=== PATIENT | male | born 1950 | race American Indian/Alaskan Native ===

== ENCOUNTER 2017-06-11 07:37 | Day surgery (SDC) | payer MEDICARE ==
[~2017-06-11 07:37] MED LIST: ANCEF/STERILE WATER 2 GM/20 ML 2 GM/20 ML SYRINGE IV NR; NACL 0.9% 1000 ML 1,000 ML IV SCH
[2017-06-11 08:43] LABS: Basophils % (Auto) 0.6 % (0.0-1.8); Eosinophils # (Auto) 0.1 K/mm3 (0.0-0.4); Hemoglobin 12.8 gm/dl (11.8-15.2); Lymphocytes # (Auto) 1.3 K/mm3 (1.2-5.4); Lymphocytes % (Auto) 29.4 % (13.4-35.0); Mean Corpuscular HGB Conc 34 % (32-34); Mean Corpuscular Hemoglobin 30 pg (28-32); Mean Corpuscular Volume 89 fl (84-94); Monocytes # (Auto) 0.4 K/mm3 (0.0-0.8); Monocytes % (Auto) 9.3 % (0.0-7.3); Platelet Count 194 K/mm3 (140-440); Red Blood Count 4.28 M/mm3 (3.65-5.03); Red Cell Distribution Width 15.3 % (13.2-15.2)
[2017-06-11 08:58] LABS: INR 0.92 (0.87-1.13); Partial Thromboplastin Time 31.1 Sec. (24.2-36.6)
[2017-06-11 09:16] LABS: BUN/Creatinine Ratio 37; Blood Urea Nitrogen 26 mg/dL (9-20); Calcium 9.4 mg/dL (8.4-10.2); Hemolysis Index 49
[2017-06-11] MEDS ORDERED: HEPARIN/NS 5000 UNIT/500ML(CATH LAB) 1,000 ML IR ONE (09:18)
[2017-06-11] MEDS ORDERED: VERSED ONE (09:18)
[2017-06-11] MEDS ORDERED: HEPARIN 10,000 UNITS/10 ML ONE (09:18)
[2017-06-11] MEDS ORDERED: XYLOCAINE 1%/ EPI 1:100,000 INFILTRATI ONE (09:19)
[2017-06-11] MEDS ORDERED: SUBLIMAZE ONE ×2 (09:19→10:47)
[2017-06-11] MEDS ORDERED: ANCEF/STERILE WATER 2 GM/20 ML 2 GM/20 ML SYRINGE IV ONE (09:19)
[2017-06-11] MEDS ORDERED: D50W (25GM) Vial IV ONE (09:56)
[2017-06-11] MEDS ORDERED: D50W (25GM) Vial 50 ML IV ONE (09:58)
--- NOTE | 2017-06-11 10:17 | Anesthesia Consultation ---
Anesthesia Consult and Med Hx Date of service: 06/11/17 - Airway Anesthetic Teeth Evaluation: Good ROM Head & Neck: Adequate Mental/Hyoid Distance: Adequate Intubation Access Assessment: Probably Good - Pulmonary Exam CTA: Yes - Cardiac Exam Cardiac Exam: RRR - Pre-Operative Health Status ASA Pre-Surgery Classification: ASA4 Proposed Anesthetic Plan: MAC - Cardiovascular System Hx Hypertension: Yes (Hx) Hx Peripheral Vascular Disease: Yes - Central Nervous System Hx Seizures: Yes Hx Psychiatric Problems: Yes (dementia) - Endocrine Hx Insulin Dependent Diabetes: Yes - Other Systems Hx Cancer: No
--- NOTE | 2017-06-11 10:17 | Anesthesia Day of Surgery ---
Anesthesia Day of Surgery - Day of Surgery Patient Examined: Yes Patient H&P Reviewed: Yes Patient is NPO: Yes
[2017-06-11] MEDS ORDERED: DIPRIVAN 10 MG/ML IV ONE ×4 (10:47)
[2017-06-11] MEDS ORDERED: NEO SYNEPHRINE/NS Syringe(OR USE) IV ONE (11:00)
[2017-06-11] MEDS ORDERED: XYLOCAINE 2% INFILTRATI ONE (11:35)
--- NOTE | 2017-06-11 15:00 | Short Stay Summary ---
Short Stay Documentation Date of service: 06/11/17 Narrative H&P: See H&P - History H&P: obtained from office - Allergies and Medications Current Medications: Allergies No Known Allergies Allergy (Verified 06/11/17 08:46) Home Medications Medication Instructions Recorded Confirmed Last Taken Type Acetaminophen [Pain Relief] 500 mg PO PRN PRN 06/11/17 06/11/17 06/05/17 History Insulin NPH Hum/Reg Insulin Hm 5 units SC PRN PRN 06/11/17 06/11/17 06/10/17 History [Humulin 70-30 Vial] Memantine HCl [Memantine HCl] 10 mg PO QDAY 06/11/17 06/11/17 06/11/17 06:30 History Active Medications Cefazolin Sodium (Ancef/Sterile Water 2 Gm/20 Ml) 2 gm in 20 mls @ 80 mls/hr IV PREOP NR PRN Reason: Protocol Stop: 06/11/17 23:59 Last Admin: 06/11/17 11:59 Dose: 20 mls Sodium Chloride (Nacl 0.9% 1000 Ml) 1,000 mls @ 42 mls/hr IV DIRECT ALEJANDRO Last Admin: 06/11/17 11:04 Dose: 42 mls/hr - Brief post op/procedure progress note Date of procedure: 06/11/17 Pre-op diagnosis: PVD with Left Foot Toe Ulcer Post-op diagnosis: same Procedure: 1. Ultrasound-Guided Access Right Common Femoral Artery 2. Second Order Catheter Placement 3. Diagnostic Aortogram with Bilateral Lower Extremity Runoff (No Previous Films for Comparison) 4. Radiographic Supervision with Interpretation Anesthesia: MAC, local Surgeon: ROSITA MEEK Estimated blood loss: minimal Pathology: none Condition: stable - Disposition Condition at discharge: Good Disposition: DC-01 TO HOME OR SELFCARE Short Stay Discharge Plan Activity: other (no strenuous activity for 24 hours) Wound: remove dressing (24 hours) Follow up with: ROSITA MEEK MD [Primary Care Provider] - 14 Days Forms: Post Arteriogram Instruct
[2017-06-11 15:24] VITALS: BP 103/37
--- NOTE | 2017-06-12 15:50 | Operative Report ---
Operative Report Operative Report: Date of Procedure: 06/11/2017 Pre-operative Diagnosis: PVD with Left Fourth Toe Ulceration Post-operative Diagnosis: Same Procedure(s): 1. Ultrasound-Guided Access Right Common Femoral Artery 2. Second Order Catheter Placement 3. Diagnostic Aortogram with Bilateral Lower Extremity Runoff (No Previous Films for Comparison) 4. Radiographic Supervision with Interpretation Surgeon: Cal Lee M.D. Pitch Worker: None Anesthesia: Local/MAC EBL: Minimal Counts: Correct Complications: None Condition: Stable Specimen: None Indication: The patient is a 67-year-old male with a history of diabetes and a left fourth toe ulceration that is not healed. Physical examination he does not have palpable pulses. He is in need of diagnostic study. He was offered an arteriogram. He was family were given the risks, benefits, and alternative procedures and consented to procedure. Angiographic Findings: The diagnostic aortogram demonstrated the aorta was widely patent without any evidence of aneurysm or significant stenosis. Bilateral renal arteries were widely patent. Bilateral common iliac arteries were widely patent. The left lower extremity runoff demonstrated the left external iliac, left internal, and left common femoral arteries were widely patent. The left profunda artery with sluggish but patent. The left SFA and popliteal arteries were widely patent. The left anterior tibial artery was widely patent and continued as a dorsalis pedis artery down onto the foot. The posterior tibial artery was patent to the ankle however became an atretic artery in the foot. The peroneal artery was patent to the mid calf and became an atretic artery the remainder of his course. The right lower extremity runoff demonstrated that the right external iliac artery and hypogastric artery were widely patent. The right common femoral artery was widely patent. The right profunda artery was sluggish but while the pain. The right superficial femoral artery and popliteal arteries were widely patent. The right anterior tibial artery was patent in the proximal portion however in the distal portion was approximately 80% stenosis in the dorsalis pedis artery was patent. The posterior tibial artery was patent in the proximal midportion have an occluded distally and did not appear to reconstitute until the distal foot. The peroneal artery was patent proximally however occluded and did not reconstitute distally. Description of Procedure: The patient was brought to the [facility] and laid in supine position. After he was adequately sedated his heart was prepped and draped in normal sterile fashion. Ultrasound was used to identify the right common femoral artery and confirmed patency. The skin and soft tissue was anesthetized with lidocaine and a small stab incision was created. Micropuncture technique was used with ultrasound guidance to the right common femoral artery and then a 0.035 J-wire was advanced into the aorta under fluoroscopy. A 5 [place] sheath was placed by Seldinger technique. An Omni Flush catheter was advanced to the level of the renal arteries and the aortogram was performed. The catheter was pulled to just above the bifurcation and the bilateral lower extremity runoff was performed with the prescribed findings. A 0.035 Bentson wire and Omni Flush catheter were advanced up and over the bifurcation and the catheter was advanced into the distal SFA. Multiple oblique projections were performed of the tibial vessels as well as the distal popliteal artery and iliac vessels to confirm that there were no identifiable areas of flow limiting stenosis. Once this was confirmed the 0.035 Bentson wire was reinserted into the Omni Flush catheter. The catheter and wire were removed. The 5 [place] sheath was then removed and pressure was held to achieve hemostasis. The patient tolerated the procedure well. All sponge, needle, and instrument counts were correct. The patient was taken to the recovery area in stable condition.
--- NOTE | 2017-06-14 07:35 | Vascular Lab Report ---
MISCELLANEOUS VESSEL IDENTIFICATION: COMMENTS ON THE SCAN: The right common femoral artery was identified and under real-time ultrasound guidance was cannulated. IMPRESSION: Successful ultrasound guided arterial cannulation.
== END 2017-06-11 15:15 | disposition home or self-care (01) ==
LOC: CATHLABREC 07:37
PROVIDERS: ATTEND Surgery Vascular Surgery
DX: I70.245 Atherosclerosis of native arteries of left leg with ulceration of other part of foot (principal); I70.235 Atherosclerosis of native arteries of right leg with ulceration of other part of foot; E11.51 Type 2 diabetes mellitus with diabetic peripheral angiopathy without gangrene; I10 Essential (primary) hypertension; F03.90 Unspecified dementia, unspecified severity, without behavioral disturbance, psychotic disturbance, mood disturbance, and anxiety; Z79.01 Long term (current) use of anticoagulants; Z79.4 Long term (current) use of insulin
CPT/HCPCS: 36247; 36415; 75625; 75716; 76937; 80048; 82962; 85025; 85610; 85730; 96374; C1760; J0690; J1644; J2370; J2704; J3010; J7030; 36246; J2250; Q9967

== ENCOUNTER 2017-08-23 07:30 | Day surgery (SDC) | payer MEDICARE ==
[2017-08-23 10:00] LABS: Basophils % (Auto) 0.7 % (0.0-1.8); Eosinophils # (Auto) 0.1 K/mm3 (0.0-0.4); Eosinophils % (Auto) 1.6 % (0.0-4.3); Hemoglobin 12.5 gm/dl (11.8-15.2); Lymphocytes # (Auto) 1.8 K/mm3 (1.2-5.4); Lymphocytes % (Auto) 27.6 % (13.4-35.0); Mean Corpuscular HGB Conc 34 % (32-34); Mean Corpuscular Hemoglobin 29 pg (28-32); Mean Corpuscular Volume 85 fl (84-94); Monocytes # (Auto) 0.6 K/mm3 (0.0-0.8); Monocytes % (Auto) 8.9 % (0.0-7.3); Platelet Count 286 K/mm3 (140-440); Red Blood Count 4.33 M/mm3 (3.65-5.03); Red Cell Distribution Width 15.3 % (13.2-15.2)
[2017-08-23 10:18] LABS: BUN/Creatinine Ratio 31; Blood Urea Nitrogen 22 mg/dL (9-20); Calcium 8.9 mg/dL (8.4-10.2); Hemolysis Index 3
[2017-08-23 10:22] LABS: INR 0.95 (0.87-1.13)
[2017-08-23] MEDS ORDERED: DILAUDID IV PRN (10:32)
[2017-08-23] MEDS ORDERED: ZOFRAN IV PRN (10:32)
--- NOTE | 2017-08-23 10:43 | Anesthesia Consultation ---
Anesthesia Consult and Med Hx Date of service: 08/23/17 - Airway Anesthetic Teeth Evaluation: Poor, Chipped ROM Head & Neck: Adequate Mental/Hyoid Distance: Adequate Intubation Access Assessment: Probably Good (dementia prevents complete examination) - Pulmonary Exam CTA: Yes - Cardiac Exam Cardiac Exam: RRR - Pre-Operative Health Status ASA Pre-Surgery Classification: ASA3 Proposed Anesthetic Plan: General (potential ankle block) - Pulmonary Hx Smoking: Yes (former) - Cardiovascular System Hx Hypertension: Yes (Hx) Hx Peripheral Vascular Disease: Yes - Central Nervous System Hx Seizures: Yes (may have been related to low blood sugar) Hx Psychiatric Problems: Yes (dementia) - Endocrine Hx Insulin Dependent Diabetes: Yes - Other Systems Hx Cancer: No
--- NOTE | 2017-08-23 10:43 | Anesthesia Day of Surgery ---
Anesthesia Day of Surgery - Day of Surgery Patient Examined: Yes Patient H&P Reviewed: Yes Patient is NPO: Yes
[2017-08-23] MEDS ORDERED: DIPRIVAN 10 MG/ML IV ONE (10:45)
[2017-08-23] MEDS ORDERED: XYLOCAINE MPF 2% ONE (11:23)
[2017-08-23] MEDS ORDERED: ePHEDrine SULFATE ONE (11:31)
[2017-08-23] MEDS ORDERED: NEO SYNEPHRINE/NS Syringe(OR USE) IV ONE (11:36)
[2017-08-23] MEDS ORDERED: NACL 0.9% IR ONE (11:55)
[2017-08-23] MEDS ORDERED: SUBLIMAZE ONE (12:02)
[2017-08-23] MEDS ORDERED: ZOFRAN ONE (12:23)
--- NOTE | 2017-08-23 12:35 | Short Stay Summary ---
Short Stay Documentation Date of service: 08/23/17 Narrative H&P: See H&P - History H&P: obtained from office - Allergies and Medications Current Medications: Allergies No Known Allergies Allergy (Verified 08/19/17 14:27) Home Medications Medication Instructions Recorded Confirmed Last Taken Type Acetaminophen [Pain Relief] 500 mg PO PRN PRN 06/11/17 08/19/17 06/05/17 History Insulin NPH Hum/Reg Insulin Hm 5 units SC PRN PRN 06/11/17 08/23/17 08/22/17 20: 30 History [Humulin 70-30 Vial] Memantine HCl 10 mg PO QDAY 06/11/17 08/23/17 08/22/17 09:00 History Active Medications Celecoxib (Celebrex) 200 mg PO PREOP NR Stop: 08/23/17 23:00 Hydromorphone HCl (Dilaudid) 0.5 mg IV Q10MIN PRN PRN Reason: Pain , Severe (7-10) Sodium Chloride (Nacl 0.9% 1000 Ml) 1,000 mls @ 42 mls/hr IV DIRECT ALEJANDRO Last Admin: 08/23/17 10:00 Dose: 42 mls/hr Ondansetron HCl (Zofran) 4 mg IV ONCE PRN PRN Reason: Nausea And Vomiting - Brief post op/procedure progress note Date of procedure: 08/23/17 Pre-op diagnosis: PVD with Left 4th Toe Gangrene Post-op diagnosis: same Procedure: Amputation of Left 4th Toe Anesthesia: LATASHA Surgeon: ROSITA MEEK Estimated blood loss: minimal Pathology: list (left 4th Toe) Specimen disposition: to lab Condition: stable - Disposition Condition at discharge: Good Disposition: DC-01 TO HOME OR SELFCARE Short Stay Discharge Plan Activity: no restrictions Wound: remove dressing (48 hours), other (After removing dressings ok to wash with soap and water, daily, but do not soak in water. Then dress daily with a dry dressing.) Follow up with: ROSITA MEEK MD [Staff Physician] - 14 Days Prescriptions: HYDROcodone/APAP 7.5-325 [[place] 7.5/325] 1 each PO Q6HR PRN #40 tablet PRN Reason: Pain
--- NOTE | 2017-08-23 12:42 | Operative Report ---
Operative Report Operative Report: Date of Procedure: 08/23/2017 Pre-operative Diagnosis: PVD with Left Fourth Toe Gangrene Post-operative Diagnosis: Same Procedure(s): 1. Amputation of Left Fourth Toe Surgeon: Cal Lee M.D. Finance Attorney: Warner Anesthesia: Gen. Endotracheal Anesthesia EBL: Minimal Counts: Correct Complications: None Condition: Stable Findings: All remaining tissue appeared healthy and viable without obvious signs of infection. Specimen: Left fourth toe was sent to pathology. Indication: The patient is a 67-year-old male with a history of gangrene of the left fourth digit. He was initially treated with Betadine to the toe and pain control however he developed drainage from the toe and increasing pain requiring amputation. He and his caregiver were given the risk, benefits, and alternative procedures and consented to the procedure. Description of Procedure: The patient was brought to the operating room and laid in supine position. After general endotracheal decision was achieved circumferential incision was created just above the proximal phalanx of the fourth digit on the left foot and carried down to the bone. A bone cutter was then used to transect the proximal phalanx. A rongeur was used to debride the bone back to the metatarsal head. Once the bone was debrided back to the metatarsal head the wound was copiously irrigated. Hemostasis within the bone was achieved with combination of direct pressure and cautery. Once hemostasis was achieved the wound was then closed in 2 layers using a 3-0 Vicryl to reapproximate the deep layers. The skin was then reapproximated using a combination of 3-0 Ethilon in vertical mattress fashion and 4-0 chromic to reapproximate the skin. The toe was then anesthetized using 0.5 % Marcaine for a digital block. I then dressed the total use and a Xeroform gauze, fluff, loosely rolled Kerlix, and a 4 inch Kirby bandage. The patient tolerated the procedure well. All sponge, needle, and instrument counts were correct. The patient was taken to the recovery area in stable condition.
[2017-08-23] MEDS ORDERED: MARCAINE 0.5% INFILTRATI ONE (12:46)
[2017-08-23 15:06] VITALS: BP 135/66
--- NOTE | 2017-08-23 22:15 | Post Anesthesia Evaluation ---
- Post Anesthesia Evaluation Patient Participated: Yes Airway Patent: Yes Stable Respiratory Function: Yes Nausea/Vomiting: No Temp > 96.8F: Yes Pain Manageable: Yes Adequeate Hydration: Yes Anesthesia Complications: No
== END 2017-08-23 15:08 | disposition home or self-care (01) ==
LOC: OR 07:30
PROVIDERS: ATTEND Surgery Vascular Surgery
DX: I70.268 Atherosclerosis of native arteries of extremities with gangrene, other extremity (principal); M86.8X8 Other osteomyelitis, other site; E11.9 Type 2 diabetes mellitus without complications; G30.9 Alzheimer's disease, unspecified; I70.235 Atherosclerosis of native arteries of right leg with ulceration of other part of foot; I70.245 Atherosclerosis of native arteries of left leg with ulceration of other part of foot; I10 Essential (primary) hypertension; M13.88 Other specified arthritis, other site; M87.878 Other osteonecrosis, left toe(s); L02.818 Cutaneous abscess of other sites; Z83.3 Family history of diabetes mellitus; Z79.899 Other long term (current) drug therapy
CPT/HCPCS: 28810; 36415; 80048; 82962; 85025; 85610; 88305; 88311; J0690; J2370; J2405; J2704; J3010; J7030

== ENCOUNTER 2017-09-09 09:28 | Day surgery (SDC) | payer MEDICARE ==
--- NOTE | 2017-09-09 10:45 | Anesthesia Day of Surgery ---
Anesthesia Day of Surgery - Day of Surgery Patient Examined: Yes Patient H&P Reviewed: Yes Patient is NPO: Yes Beta Blockers: No
--- NOTE | 2017-09-09 10:45 | Anesthesia Consultation ---
Anesthesia Consult and Med Hx Date of service: 09/09/17 - Airway Anesthetic Teeth Evaluation: Good ROM Head & Neck: Adequate Mental/Hyoid Distance: Adequate Mallampati Class: Class I Intubation Access Assessment: Good - Pulmonary Exam CTA: Yes - Cardiac Exam Cardiac Exam: RRR - Pre-Operative Health Status ASA Pre-Surgery Classification: ASA3 Proposed Anesthetic Plan: General - Pulmonary Hx Smoking: Yes (former) - Cardiovascular System Hx Hypertension: Yes (no meds) Hx Peripheral Vascular Disease: Yes - Central Nervous System Hx Seizures: Yes (may have been related to low blood sugar) Hx Psychiatric Problems: Yes (dementia) - Endocrine Hx Insulin Dependent Diabetes: No Hx Non-Insulin Dependent Diabetes: Yes - Other Systems Hx Cancer: No - Additional Comments Anesthesia Medical History Comments: dementia
[2017-09-09 11:13] LABS: Hematocrit 36.2 % (35.5-45.6); Hemoglobin 11.8 gm/dl (11.8-15.2); Mean Corpuscular HGB Conc 33 % (32-34); Mean Corpuscular Hemoglobin 28 pg (28-32); Mean Corpuscular Volume 86 fl (84-94); Platelet Count 241 K/mm3 (140-440); Red Blood Count 4.22 M/mm3 (3.65-5.03); Red Cell Distribution Width 15.6 % (13.2-15.2)
[2017-09-09 11:58] LABS: BUN/Creatinine Ratio 28; Blood Urea Nitrogen 17 mg/dL (9-20); Calcium 8.7 mg/dL (8.4-10.2); Hemolysis Index 4
[2017-09-09] MEDS ORDERED: DIPRIVAN 10 MG/ML IV ONE (12:17)
[2017-09-09] MEDS ORDERED: NACL 0.9% 100 ML ONE (12:17)
[2017-09-09] MEDS ORDERED: SUBLIMAZE ONE (12:17)
[2017-09-09] MEDS ORDERED: XYLOCAINE MPF 2% ONE (12:17)
[2017-09-09] MEDS ORDERED: ePHEDrine SULFATE ONE (13:57)
[2017-09-09] MEDS ORDERED: NACL 0.9% IR ONE ×2 (14:00)
[2017-09-09] MEDS ORDERED: MORPHINE IV PRN (14:43)
--- NOTE | 2017-09-09 14:45 | Post Anesthesia Evaluation ---
- Post Anesthesia Evaluation Patient Participated: No (dementia) Airway Patent: Yes Stable Respiratory Function: Yes Nausea/Vomiting: No Temp > 96.8F: Yes Pain Manageable: Yes Adequeate Hydration: Yes Anesthesia Complications: No
--- NOTE | 2017-09-09 15:01 | Operative Report ---
Operative Report Operative Report: Operative note: Date: 09/09/2017 Preoperative diagnosis: Left foot abscess Postoperative diagnosis: Same. Operation: Incision and drainage of left foot abscess Surgeon: Diane Ruiz. Asst.: None Anesthesia: Gen. EBL: Minimal Findings: Purulence with fibula was exudate on the off first toe amputation on the left side as well as plantar side abscess at the same level. Indications: 67-year-old male with multiple medical problems including Alzheimer 's disease, diabetes, non-ambulatory came to follow up after his left fourth toe amputation 2 weeks ago and noticed to develop purulent drainage at the amputation site as well as tracking towards plantar surface was another drainage from that site. Patient's daughter was discussed risks, benefits and alternatives of procedure and she chose to proceed, signed informed consent. Operative details: Patient was brought to the operating room and placed under general anesthesia by anesthesia provided. He has left foot was prepped and draped in sterile fashion. Timeout was performed and all team members in the agreement. Sutures were removed from" sites and purulent drainage was noted. Cultures were sent. The pus cavity was palpated and the superficial plantar compartment tracking to the other site. I opened the abscess surface connecting amputation site with plantar drainage. Fibrinous exudate was debrided and cavity was pulse irrigated with saline. Sizes of the wound: 15cm x 3cm 2cm. Wound was palpated confirming no more loculations, it was packed with iodoform packing. Wound was dressed with fluff, Kerlix roll and Kirby bandage. Patient tolerated the procedure well and was sent to PACU in stable condition.
--- NOTE | 2017-09-09 15:08 | Short Stay Summary ---
Short Stay Documentation Date of service: 09/09/17 - History Principal diagnosis: left foot abscess H&P: obtained from office - Allergies and Medications Current Medications: Allergies No Known Allergies Allergy (Verified 09/08/17 15:54) Home Medications Medication Instructions Recorded Confirmed Last Taken Type Acetaminophen [Pain Relief] 500 mg PO PRN PRN 06/11/17 09/08/17 06/05/17 History Insulin NPH Hum/Reg Insulin Hm 5 units SC PRN PRN 06/11/17 09/08/17 08/22/17 20: 30 History [Humulin 70-30 Vial] Memantine HCl 10 mg PO QDAY 06/11/17 09/09/17 09/08/17 History HYDROcodone/APAP 7.5-325 [[place] 1 each PO Q6HR PRN #40 tablet 08/23/17 09/08/17 Unknown Rx 7.5/325] Active Medications Cefazolin Sodium (Ancef/Sterile Water 2 Gm/20 Ml) 2 gm in 20 mls @ 80 mls/hr IV PREOP NR; Protocol Stop: 09/09/17 23:59 Sodium Chloride (Nacl 0.9% 1000 Ml) 1,000 mls @ 42 mls/hr IV DIRECT ALEJANDRO Last Admin: 09/09/17 11:44 Dose: 42 mls/hr Morphine Sulfate (Morphine) 2 mg IV Q10MIN PRN PRN Reason: Pain, Moderate (4-6) Last Admin: 09/09/17 14:55 Dose: 2 mg - Brief post op/procedure progress note Date of procedure: 09/09/17 Pre-op diagnosis: left foot abscess Post-op diagnosis: same Procedure: I & D of left foot abscess Anesthesia: GETA Findings: left foot abscess on plantar surface and 4th toe amputation site Surgeon: TONIO ENGLAND Estimated blood loss: minimal Specimen disposition: to lab Condition: stable - Disposition Condition at discharge: Good Disposition: DC-01 TO HOME OR SELFCARE Short Stay Discharge Plan Diet: regular Wound: change dressing (daily dressing change including packing with wet gauze) Follow up with: SYED PUENTES MD [Primary Care Provider] - 7 Days ROSITA MEEK MD [Staff Physician] - 7 Days Prescriptions: Doxycycline [Vibramycin CAP] 100 mg PO Q12HR #14 capsule HYDROcodone/APAP 7.5-325 [[place] 7.5-325 mg TAB] 1 each PO Q6HR PRN #40 tablet PRN Reason: Pain Levofloxacin [Levaquin TAB] 750 mg PO QDAY #7 tablet
[2017-09-09 16:19] VITALS: BP 161/60
== END 2017-09-09 09:29 | disposition home or self-care (01) ==
LOC: OR 09:28
PROVIDERS: ATTEND Surgery Vascular Surgery
DX: T81.4XXA Infection following a procedure, initial encounter (principal); L02.612 Cutaneous abscess of left foot; E11.51 Type 2 diabetes mellitus with diabetic peripheral angiopathy without gangrene; I70.245 Atherosclerosis of native arteries of left leg with ulceration of other part of foot; I70.235 Atherosclerosis of native arteries of right leg with ulceration of other part of foot; G30.9 Alzheimer's disease, unspecified; F02.80 Dementia in other diseases classified elsewhere, unspecified severity, without behavioral disturbance, psychotic disturbance, mood disturbance, and anxiety; Z98.890 Other specified postprocedural states; Z87.891 Personal history of nicotine dependence; Z79.4 Long term (current) use of insulin; Y83.8 Other surgical procedures as the cause of abnormal reaction of the patient, or of later complication, without mention of misadventure at the time of the procedure
CPT/HCPCS: 11042; 11045; 36415; 80048; 82962; 85027; 87075; 87076; 87116; 87186; A4217; J0690; J2270; J2704; J3010; J7030

== ENCOUNTER 2018-01-13 15:07 | Inpatient (IN) | payer MEDICARE ==
[2018-01-13 16:05] LABS: Hematocrit 36.5 % (35.5-45.6); Hemoglobin 12.1 gm/dl (11.8-15.2); Mean Corpuscular HGB Conc 33 % (32-34); Mean Corpuscular Hemoglobin 29 pg (28-32); Mean Corpuscular Volume 86 fl (84-94); Platelet Count 198 K/mm3 (140-440); Red Blood Count 4.23 M/mm3 (3.65-5.03); Red Cell Distribution Width 16.7 % (13.2-15.2)
[2018-01-13 16:06] LABS: Alanine Aminotransferase 25 units/L (7-56); Albumin 2.7 g/dL (3.9-5); BUN/Creatinine Ratio 24; Blood Urea Nitrogen 29 mg/dL (9-20); Calcium 8.7 mg/dL (8.4-10.2); Hemolysis Index 4
[2018-01-13] MEDS ORDERED: NACL 0.9% 1000 ML 1,000 ML IV ONE (17:17)
--- NOTE | 2018-01-13 17:17 | Emergency Department Report ---
- General Chief complaint: Weakness Stated complaint: FLU LIKE SYMPTOMS Time Seen by Provider: 01/13/18 17:14 Source: patient Mode of arrival: Wheelchair Limitations: No Limitations - History of Present Illness Initial comments: Mr Morales is a 67 year-old man with hx of DM, alzheimers dementia who presents from home with generalized weakness. Advanced dementia. Has been eating less all week, now no longer even taking fluids. is less interactive. Coughing. Fever 100.5 axillary today prior to coming to ED. Normal smelling urine, in diaper. Loose stools. Normal mental status, just less interactive and more tired. - Related Data Home Medications Medication Instructions Recorded Confirmed Last Taken Acetaminophen [Pain Relief] 500 mg PO PRN PRN 06/11/17 09/08/17 06/05/17 Insulin NPH Hum/Reg Insulin Hm 5 units SC PRN PRN 06/11/17 09/08/17 08/22/17 20: 30 [Humulin 70-30 Vial] Memantine HCl 10 mg PO QDAY 06/11/17 09/09/17 09/08/17 Previous Rx's Medication Instructions Recorded Last Taken Type Doxycycline [Vibramycin CAP] 100 mg PO Q12HR #14 capsule 09/09/17 Unknown Rx HYDROcodone/APAP 7.5-325 [[place] 1 each PO Q6HR PRN #40 tablet 09/09/17 Unknown Rx 7.5-325 mg TAB] Levofloxacin [Levaquin TAB] 750 mg PO QDAY #7 tablet 09/09/17 Unknown Rx Allergies Allergy/AdvReac Type Severity Reaction Status Date / Time No Known Allergies Allergy Verified 09/08/17 15:54 ED Review of Systems ROS: Stated complaint: FLU LIKE SYMPTOMS Other details as noted in HPI Comment: Unobtainable due to pts medical conditions ED Past Medical Hx - Past Medical History Previous Medical History?: Yes Hx Hypertension: Yes (no meds) Hx Diabetes: Yes Hx Seizures: Yes (may have been related to low blood sugar) - Surgical History Past Surgical History?: Yes - Social History Smoking Status: Never Smoker Substance Use Type: None - Medications Home Medications: Home Medications Medication Instructions Recorded Confirmed Last Taken Type Acetaminophen [Pain Relief] 500 mg PO PRN PRN 06/11/17 09/08/17 06/05/17 History Insulin NPH Hum/Reg Insulin Hm 5 units SC PRN PRN 06/11/17 09/08/17 08/22/17 20: 30 History [Humulin 70-30 Vial] Memantine HCl 10 mg PO QDAY 06/11/17 09/09/17 09/08/17 History Doxycycline [Vibramycin CAP] 100 mg PO Q12HR #14 capsule 09/09/17 Unknown Rx HYDROcodone/APAP 7.5-325 [[place] 1 each PO Q6HR PRN #40 tablet 09/09/17 Unknown Rx 7.5-325 mg TAB] Levofloxacin [Levaquin TAB] 750 mg PO QDAY #7 tablet 09/09/17 Unknown Rx ED Physical Exam - General Limitations: No Limitations General appearance: in no apparent distress - Head Head exam: Present: atraumatic, normocephalic - Eye Eye exam: Present: normal appearance, PERRL. Absent: scleral icterus, conjunctival injection - ENT ENT exam: Present: normal exam, mucous membranes dry - Neck Neck exam: Present: normal inspection. Absent: tenderness, meningismus - Respiratory Respiratory exam: Present: normal lung sounds bilaterally. Absent: respiratory distress, wheezes, rales - Cardiovascular Cardiovascular Exam: Present: normal rhythm, tachycardia, normal heart sounds - GI/Abdominal GI/Abdominal exam: Present: soft. Absent: distended, tenderness, guarding, rebound - Extremities Exam Extremities exam: Present: normal inspection, full ROM, normal capillary refill. Absent: tenderness - Back Exam Back exam: Present: normal inspection. Absent: CVA tenderness (R), CVA tenderness (L) - Neurological Exam Neurological exam: Present: alert, altered, other (moves all four extremities, does not follow commands. ) - Skin Skin exam: Present: warm, dry, intact ED Course Vital Signs 01/13/18 15:14 Temperature 99 F Pulse Rate 81 Respiratory 16 Rate Blood Pressure 95/69 O2 Sat by Pulse 93 Oximetry ED Medical Decision Making - Lab Data Result diagrams: 01/13/18 15:19 01/13/18 15:19 Lab Results 01/13/18 01/13/18 Range/Units 15:19 15:19 WBC 7.9 (4.5-11.0) K/mm3 RBC 4.23 (3.65-5.03) M/mm3 Hgb 12.1 (11.8-15.2) gm/dl Hct 36.5 (35.5-45.6) % MCV 86 (84-94) fl MCH 29 (28-32) pg MCHC 33 (32-34) % RDW 16.7 H (13.2-15.2) % Plt Count 198 (140-440) K/mm3 Sodium 143 (137-145) mmol/L Potassium 3.4 L (3.6-5.0) mmol/L Chloride 102.4 (98-107) mmol/L Carbon Dioxide 26 (22-30) mmol/L Anion Gap 18 mmol/L BUN 29 H (9-20) mg/dL Creatinine 1.2 (0.8-1.5) mg/dL Estimated GFR > 60 ml/min BUN/Creatinine Ratio 24 % Glucose 100 (75-100) mg/dL Calcium 8.7 (8.4-10.2) mg/dL Total Bilirubin 0.70 (0.1-1.2) mg/dL AST 57 H (5-40) units/L ALT 25 (7-56) units/L Alkaline Phosphatase 96 (35-129) units/L Total Protein 6.2 L (6.3-8.2) g/dL Albumin 2.7 L (3.9-5) g/dL Albumin/Globulin Ratio 0.8 % - EKG Data 01/13/18 16:16 HR 109, sinus, normal axis, intervals wnl, T wave flattening diffusely. 01/13/18 18:48 HR 110, sinus, normal axis, intervals wnl, lateral St depression. - Radiology Data Radiology results: report reviewed, image reviewed FINDINGS: Patchy and confluent opacities are present in the right lower lobe distribution. Left lung demonstrates no acute abnormality. Pulmonary vasculature is unremarkable. No pleural fluid collection seen. Cardiac and mediastinal contours are IMPRESSION: Right lower lobe pulmonary infiltrates likely reflecting pneumonia - Medical Decision Making Mr Morales is a 67 year-old man with hx of dementia who presents with decreased alertness, cough. Unable to provide history. Soft BP, mild tachycardia. Suspect PNA vs UTI vs ACS vs dehydration. CXR with infiltrate. EKG with diffuse t-wave flattening. Trop 0.24. Suspect this is demand ischemic. Lactic is 3. Normal Cr, K. WBC normal. Hgb normal. Starting sepsis protocol: fluids, rocephin, levaquin. Awaiting urine as well. Admit to medicine for pneumonia and likely demand ischemia. Will repeat trop. Hold on treating as NSTEMI for now. Critical care attestation.: If time is entered above; I have spent that time in minutes in the direct care of this critically ill patient, excluding procedure time. ED Disposition Clinical Impression: Pneumonia Qualifiers: Pneumonia type: due to unspecified organism Laterality: right Lung location: lower lobe of lung Qualified Code(s): J18.1 - Lobar pneumonia, unspecified organism Disposition: OP ADMIT IP TO THIS HOSP Is pt being admited?: Yes Does the pt Need Aspirin: Yes Condition: Stable Instructions: Bacterial Pneumonia (ED) Referrals: PRIMARY CARE, [Primary Care Provider] - 3-5 Days
[2018-01-13] MEDS ORDERED: KCL 10MEQ/100ML 10 MEQ/100 ML BAG IV ONE (17:18)
[2018-01-13 17:46] LABS: Basophils % (Manual) 0 % (0.0-1.8); Eosinophils % (Manual) 0 % (0.0-4.3); Total Cells Counted 100
[2018-01-13 17:47] LABS: Anisocytosis 1+; Platelet Estimate Consistent w Auto; Poikilocytosis Few
--- NOTE | 2018-01-13 18:24 | XRay Report ---
FINAL REPORT EXAM: XR CHEST 1V AP HISTORY: fever, cough TECHNIQUE: Chest single AP PRIORS: None. FINDINGS: Patchy and confluent opacities are present in the right lower lobe distribution. Left lung demonstrates no acute abnormality. Pulmonary vasculature is unremarkable. No pleural fluid collection seen. Cardiac and mediastinal contours are IMPRESSION: Right lower lobe pulmonary infiltrates likely reflecting pneumonia
[2018-01-13] MEDS ORDERED: NACL 0.9% 1000 ML IV ONE ×2 (18:44→23:00)
--- NOTE | 2018-01-13 18:51 | History and Physical Report ---
History of Present Illness Chief complaint: weak and confused History of present illness: 67 YO Male with DM, Alzheimers Dementia, Severe Malnutrition, Debility, HTN, Seizure Disorder, Unable to conduct activities of daily living presents to ED for evaluation. Pt is confused, nonverbal, and unable to provide history. Pt history provided by family who is at bedside during exam and interview. As per family, the patient has become increasingly confused over the past week. Pt is less interactive, and has experienced decreased oral intake. Pt transported to [facility] for further care and evaluation. Pt seen and evaluated in ED and found to have RLL Pneumonia, as well as elevated cardiac enzymes consistent with NSTEMI. Pt admitted to telemetry. Cardiology consulted in ED. No reports of CP, Palpitations, NVD, Trauma, productive cough, unilateral leg swelling, calf pain , prolonged travel, individual/family history of DVT/PE. Past History Past Medical History: diabetes, hypertension, seizures Past Surgical History: No surgical history, Other (reviewed) Social history: , lives with family. denies: smoking, alcohol abuse, prescription drug abuse Family history: diabetes, hypertension Medications and Allergies Allergies Allergy/AdvReac Type Severity Reaction Status Date / Time No Known Allergies Allergy Verified 09/08/17 15:54 Home Medications Medication Instructions Recorded Confirmed Last Taken Type Acetaminophen [Pain Relief] 500 mg PO PRN PRN 06/11/17 09/08/17 06/05/17 History Insulin NPH Hum/Reg Insulin Hm 5 units SC PRN PRN 06/11/17 09/08/17 08/22/17 20: 30 History [Humulin 70-30 Vial] Memantine HCl 10 mg PO QDAY 06/11/17 09/09/17 09/08/17 History Doxycycline [Vibramycin CAP] 100 mg PO Q12HR #14 capsule 09/09/17 Unknown Rx HYDROcodone/APAP 7.5-325 [[place] 1 each PO Q6HR PRN #40 tablet 09/09/17 Unknown Rx 7.5-325 mg TAB] Levofloxacin [Levaquin TAB] 750 mg PO QDAY #7 tablet 09/09/17 Unknown Rx Active Meds: Active Medications Ceftriaxone Sodium (Rocephin/Ns 2 Gm/100 Ml) 2 gm in 100 mls @ 200 mls/hr IV Q24HR ALEJANDRO; Protocol Levofloxacin/Dextrose (Levaquin 750mg/150ml) 750 mg in 150 mls @ 100 mls/hr IV Q24HR ALEJANDRO; Protocol Review of Systems ROS unobtainable: due to mental status Exam - Constitutional Vitals: Temp Pulse Resp BP Pulse Ox 99 F 81 16 95/69 93 01/13/18 15:14 01/13/18 15:14 01/13/18 15:14 01/13/18 15:14 01/13/18 15:14 General appearance: Present: mild distress, cachectic - EENT Eyes: Present: PERRL ENT: clear oral mucosa, no hearing intact - Neck Neck: Present: supple, normal ROM - Respiratory Respiratory effort: labored Respiratory: bilateral: diminished - Cardiovascular Heart Sounds: Present: S1 & S2. Absent: rub, click - Extremities Extremities: pulses symmetrical, No edema Peripheral Pulses: within normal limits - Abdominal General gastrointestinal: Present: soft, non-tender, non-distended, normal bowel sounds Male genitourinary: Present: normal - Integumentary Integumentary: Present: clear, dry, clammy, decreased turgor - Musculoskeletal Musculoskeletal: generalized weakness - Psychiatric Psychiatric: no intact judgment & insight, no memory intact - Neurologic Neurologic: no moves all extremities, no gait normal Results - Labs CBC & Chem 7: 01/13/18 15:19 01/13/18 15:19 Labs: Abnormal lab results 01/13/18 01/13/18 01/13/18 Range/Units 15:19 15:19 17:38 RDW 16.7 H (13.2-15.2) % Potassium 3.4 L (3.6-5.0) mmol/L BUN 29 H (9-20) mg/dL Lactic Acid (0.7-2.0) mmol/L AST 57 H (5-40) units/L Troponin T 0.249 H* (0.00-0.029) ng/mL Total Protein 6.2 L (6.3-8.2) g/dL Albumin 2.7 L (3.9-5) g/dL 01/13/18 Range/Units 17:38 RDW (13.2-15.2) % Potassium (3.6-5.0) mmol/L BUN (9-20) mg/dL Lactic Acid 3.10 H* (0.7-2.0) mmol/L AST (5-40) units/L Troponin T (0.00-0.029) ng/mL Total Protein (6.3-8.2) g/dL Albumin (3.9-5) g/dL Assessment and Plan - Patient Problems (1) Pneumonia Current Visit: Yes Status: Acute Qualifiers: Pneumonia type: due to unspecified organism Laterality: right Lung location: lower lobe of lung Qualified Code(s): J18.1 - Lobar pneumonia, unspecified organism Plan to address problem: IV antibiotics, blood cultures, chest x ray, supplemental oxygen, nebulizer therapy, d dimer, aspiration precautions. (2) NSTEMI (non-ST elevated myocardial infarction) Current Visit: Yes Status: Acute Plan to address problem: Admit to telemetry, therapeutic lovenox, serial cardiac enzymes, ekg, cardiology consulted in ED, echo, (3) Encephalopathy Current Visit: Yes Status: Acute Plan to address problem: CT head, neuro checks, supportive care, thyroid panel (4) Acidosis Current Visit: Yes Status: Acute Plan to address problem: Treat pneumonia, supportive care, (5) Severe malnutrition Current Visit: Yes Status: Acute Plan to address problem: Increased protein intake when awake and alert. (6) DVT prophylaxis Current Visit: Yes Status: Acute Plan to address problem: scd to ble while in bed, therapeutic anticoagulation,
[2018-01-13] MEDS ORDERED: ASPIRIN PR ONE (18:58)
[2018-01-13] MEDS ORDERED: LEVAQUIN 750MG/150ML 750 MG/150 ML BAG IV SCH (19:00)
[2018-01-13 19:05] LABS: Chol/HDL Ratio 1.96 %
[2018-01-13] MEDS ORDERED: SODIUM CHLORIDE FLUSH SYRINGE 10 ML IV PRN ×2 (19:11)
[2018-01-13] MEDS ORDERED: NITROSTAT SL PRN (19:11)
[2018-01-13] MEDS ORDERED: ZOFRAN IV PRN (19:11)
[2018-01-13] MEDS ORDERED: PROVENTIL IH PRN (19:11)
[2018-01-13] MEDS ORDERED: TYLENOL PO PRN ×2 (19:11→19:21)
[2018-01-13] MEDS ORDERED: BABY ASPIRIN PO STA (19:26)
[2018-01-13] MEDS ORDERED: NORCO 7.5/325 PO PRN (19:28)
[2018-01-13] MEDS ORDERED: LEVAQUIN 750MG/150ML 750 MG/150 ML BAG IV ONE (20:05)
[2018-01-13] MEDS ORDERED: NACL 0.9% 1000 ML 1,000 ML ONE (20:13)
[2018-01-13 20:29] LABS: BUN/Creatinine Ratio 25; Blood Urea Nitrogen 30 mg/dL (9-20); Calcium 8.6 mg/dL (8.4-10.2); Hemolysis Index 10
[2018-01-13 20:37] LABS: Free T4 (Free Thyroxine) 1.24 ng/dL (0.76-1.46)
[2018-01-13] MEDS: LOVENOX SUB-Q SCH (22:23)
[2018-01-13] MEDS: SODIUM CHLORIDE FLUSH SYRINGE 10 ML IV SCH (22:24)
[2018-01-13] MEDS: ROCEPHIN/NS 2 GM/100 ML 2 GM/100 ML BAG IV SCH (22:27)
--- NOTE | 2018-01-14 10:20 | Consultation ---
History of Present Illness Consult date: 01/14/18 Consult reason: elevated troponin History of present illness: This is a 67yr old male with Alzheimer's and is nonverbal. He also has a history of Diabetes and peripheral artery disease. There is no prior cardiac history per family members at bedside. He was brought to the hospital with reports of fever, decreased appetite, generalized weakness admitted for further evaluation. A chest x-ray reports a right lower lobe pneumonia. Laboratory values is significant for an elevated d-dimer and lactic acidosis. In addition, there were elevation of troponins thus this cardiac consultation. Troponin of 0.24. His ECG is a sinus tachycardia with Twave abnormalities. Past History Social history: , lives with family. denies: smoking, alcohol abuse, prescription drug abuse Family history: diabetes, hypertension Medications and Allergies Allergies Allergy/AdvReac Type Severity Reaction Status Date / Time No Known Allergies Allergy Verified 09/08/17 15:54 Home Medications Medication Instructions Recorded Confirmed Last Taken Type Acetaminophen [Pain Relief] 500 mg PO PRN PRN 06/11/17 01/14/18 06/05/17 History Insulin NPH Hum/Reg Insulin Hm 5 units SC PRN PRN 06/11/17 01/14/18 08/22/17 20: 30 History [Humulin 70-30 Vial] Memantine HCl 10 mg PO QDAY 06/11/17 01/14/18 09/08/17 History Active Meds: Active Medications Acetaminophen (Tylenol) 650 mg PO Q4H PRN PRN Reason: Pain MILD(1-3)/Fever >100.5/DURAN Acetaminophen/Hydrocodone Bitart ([place] 7.5/325) 1 each PO Q6H PRN PRN Reason: Pain, Moderate (4-6) Albuterol (Proventil) 2.5 mg IH Q4HRT PRN PRN Reason: Shortness Of Breath Enoxaparin Sodium (Lovenox) 60 mg 1 mg/kg (60 mg) SUB-Q Q12HR ALEJANDRO Last Admin: 01/13/18 22:23 Dose: 60 mg Ceftriaxone Sodium (Rocephin/Ns 2 Gm/100 Ml) 2 gm in 100 mls @ 200 mls/hr IV Q24HR ALEJANDRO; Protocol Last Admin: 01/13/18 22:27 Dose: 200 mls/hr Levofloxacin/Dextrose (Levaquin 750mg/150ml) 750 mg in 150 mls @ 100 mls/hr IV Q24HR ALEJANDRO; Protocol Last Admin: 01/13/18 20:09 Dose: 100 mls/hr Azithromycin 500 mg/ Sodium (Chloride) 250 mls @ 250 mls/hr IV Q24HR [facility]; Protocol Insulin Human Isoph/Insulin Regular (Humulin 70/30) 5 unit SUB-Q PRN PRN PRN Reason: high blood sugar Memantine (Namenda) 10 mg PO QDAY ALEJANDRO Nitroglycerin (Nitrostat) 0.4 mg SL Q5M PRN PRN Reason: Chest Pain Ondansetron HCl (Zofran) 4 mg IV Q8H PRN PRN Reason: Nausea And Vomiting Sodium Chloride (Sodium Chloride Flush Syringe 10 Ml) 10 ml IV BID [facility] Last Admin: 01/13/18 22:24 Dose: 10 ml Sodium Chloride (Sodium Chloride Flush Syringe 10 Ml) 10 ml IV PRN PRN PRN Reason: LINE FLUSH Sodium Chloride (Sodium Chloride Flush Syringe 10 Ml) 10 ml IV PRN PRN PRN Reason: LINE FLUSH Physical Examination Vital Signs Temp Pulse Resp BP Pulse Ox 99 F 81 16 95/69 93 01/13/18 15:14 01/13/18 15:14 01/13/18 15:14 01/13/18 15:14 01/13/18 15:14 General appearance: no acute distress HEENT: Positive: PERRL Cardiac: Positive: Tachycardia Results 01/13/18 15:19 01/13/18 19:35 Cardiac Enzymes 01/13/18 Range/Units 15:19 AST 57 H (5-40) units/L Lipids 01/13/18 Range/Units 17:38 Triglycerides 67 (2-149) mg/dL Cholesterol 108 (50-199) mg/dL HDL Cholesterol 55 (40-59) mg/dL Cholesterol/HDL Ratio 1.96 % CBC 01/13/18 Range/Units 15:19 WBC 7.9 (4.5-11.0) K/mm3 RBC 4.23 (3.65-5.03) M/mm3 Hgb 12.1 (11.8-15.2) gm/dl Hct 36.5 (35.5-45.6) % Plt Count 198 (140-440) K/mm3 Comprehensive Metabolic Panel 01/13/18 01/13/18 Range/Units 15:19 19:35 Sodium 143 145 (137-145) mmol/L Potassium 3.4 L 3.9 (3.6-5.0) mmol/L Chloride 102.4 102.0 (98-107) mmol/L Carbon Dioxide 26 25 (22-30) mmol/L BUN 29 H 30 H (9-20) mg/dL Creatinine 1.2 1.2 (0.8-1.5) mg/dL Glucose 100 75 (75-100) mg/dL Calcium 8.7 8.6 (8.4-10.2) mg/dL AST 57 H (5-40) units/L ALT 25 (7-56) units/L Alkaline Phosphatase 96 (35-129) units/L Total Protein 6.2 L (6.3-8.2) g/dL Albumin 2.7 L (3.9-5) g/dL Assessment and Plan Pneumonia Diabetes Alzheimer's Elevated troponin Lactic acidosis Elevated D-dimer Recommendations: Echocardiogram for LVEF assessment. Lower extremity dopplers for rule out DVT.
--- NOTE | 2018-01-14 10:31 | Progress Note ---
Assessment and Plan Assessment and plan: Sepsis. Patient meets criteria given the tachycardia, altered mentation and diagnosis of pneumonia. Patient will be placed on the sepsis pathway follow-up lactic acid levels. Follow-up blood cultures. Continue IV antibiotics. Consider ID consultation. Right lower lobe Pneumonia. Etiology may be aspiration related. We will obtain a speech evaluation. Continue IV antibiotics as noted above. Follow-up serial chest x-ray. NSTEMI. This likely represents a type II IN from sepsis. Continue to trend cardiac isoenzymes. Cardiology consultation pending. Toxic metabolic encephalopathy. Etiology likely secondary to #1. Patient less responsive than baseline per records. Alzheimer's dementia. Patient nonverbal at baseline. Gen. debility. PT/OT when more stable. Severe protein calorie malnutrition. Nutritional consult. Seizure disorder. Continue AEDs. Diabetes mellitus type 2. Continue Accu-Cheks and sliding scale History Interval history: Patient has Alzheimer's and is nonverbal. No family is present at the bedside. All the history was obtained from the records. Hospitalist Physical - Constitutional Vitals: Temp Pulse Resp BP Pulse Ox 98.4 F 87 18 125/47 89 01/14/18 07:50 01/14/18 07:50 01/14/18 07:50 01/14/18 07:50 01/14/18 07:50 General appearance: Present: no acute distress, cachectic - EENT Eyes: Present: PERRL, EOM intact ENT: hearing intact, clear oral mucosa, dentition normal - Neck Neck: Present: supple, normal ROM - Respiratory Respiratory effort: normal Respiratory: bilateral: CTA - Cardiovascular Rhythm: regular Heart Sounds: Present: S1 & S2. Absent: gallop, rub - Extremities Extremities: no ischemia, No edema, Full ROM - Abdominal General gastrointestinal: soft, non-tender, non-distended, normal bowel sounds - Integumentary Integumentary: Present: clear, warm, dry - Neurologic Neurologic: CNII-XII intact, moves all extremities, other (nonverbal, Alzheimer' s dementia) Results - Labs CBC & Chem 7: 01/13/18 15:19 01/13/18 19:35 Labs: Laboratory Last Values WBC 7.9 K/mm3 (4.5-11.0) 01/13/18 15:19 RBC 4.23 M/mm3 (3.65-5.03) 01/13/18 15:19 Hgb 12.1 gm/dl (11.8-15.2) 01/13/18 15:19 Hct 36.5 % (35.5-45.6) 01/13/18 15:19 MCV 86 fl (84-94) 01/13/18 15:19 MCH 29 pg (28-32) 01/13/18 15:19 MCHC 33 % (32-34) 01/13/18 15:19 RDW 16.7 % (13.2-15.2) H 01/13/18 15:19 Plt Count 198 K/mm3 (140-440) 01/13/18 15:19 Add Manual Diff Complete 01/13/18 15: Total Counted 100 01/13/18 15:19 Seg Neuts % (Manual) 64.0 % (40.0-70.0) 01/13/18 15:19 Band Neutrophils % 0 % 01/13/18 15:19 Lymphocytes % (Manual) 27.0 % (13.4-35.0) 01/13/18 15:19 Reactive Lymphs % (Man) 0 % 01/13/18 15:19 Monocytes % (Manual) 7.0 % (0.0-7.3) 01/13/18 15:19 Eosinophils % (Manual) 0 % (0.0-4.3) 01/13/18 15:19 Basophils % (Manual) 0 % (0.0-1.8) 01/13/18 15:19 Metamyelocytes % 2.0 % 01/13/18 15:19 Myelocytes % 0 % 01/13/18 15:19 Promyelocytes % 0 % 01/13/18 15:19 Blast Cells % 0 % 01/13/18 15:19 Nucleated RBC % Not Reportable 01/13/18 15:19 Seg Neutrophils # Man 5.1 K/mm3 (1.8-7.7) 01/13/18 15:19 Band Neutrophils # 0.0 K/mm3 01/13/18 15:19 Lymphocytes # (Manual) 2.1 K/mm3 (1.2-5.4) 01/13/18 15:19 Abs React Lymphs (Man) 0.0 K/mm3 01/13/18 15:19 Monocytes # (Manual) 0.6 K/mm3 (0.0-0.8) 01/13/18 15:19 Eosinophils # (Manual) 0.0 K/mm3 (0.0-0.4) 01/13/18 15:19 Basophils # (Manual) 0.0 K/mm3 (0.0-0.1) 01/13/18 15:19 Metamyelocytes # 0.2 K/mm3 01/13/18 15:19 Myelocytes # 0.0 K/mm3 01/13/18 15:19 Promyelocytes # 0.0 K/mm3 01/13/18 15:19 Blast Cells # 0.0 K/mm3 01/13/18 15:19 WBC Morphology Not Reportable 01/13/18 15:19 Hypersegmented Neuts Not Reportable 01/13/18 15:19 Hyposegmented Neuts Not Reportable 01/13/18 15:19 Hypogranular Neuts Not Reportable 01/13/18 15:19 Smudge Cells Not Reportable 01/13/18 15:19 Toxic Granulation Not Reportable 01/13/18 15:19 Toxic Vacuolation Not Reportable 01/13/18 15:19 Dohle Bodies Not Reportable 01/13/18 15:19 Pelger-Huet Anomaly Not Reportable 01/13/18 15:19 Titi Rods Not Reportable 01/13/18 15:19 Platelet Estimate Consistent w auto 01/13/18 15:19 Clumped Platelets Not Reportable 01/13/18 15:19 Plt Clumps, EDTA Not Reportable 01/13/18 15:19 Large Platelets Not Reportable 01/13/18 15:19 Giant Platelets Not Reportable 01/13/18 15:19 Platelet Satelliting Not Reportable 01/13/18 15:19 Plt Morphology Comment Not Reportable 01/13/18 15:19 RBC Morphology Not Reportable 01/13/18 15:19 Dimorphic RBCs Not Reportable 01/13/18 15:19 Polychromasia Not Reportable 01/13/18 15:19 Hypochromasia Not Reportable 01/13/18 15:19 Poikilocytosis Few 01/13/18 15:19 Anisocytosis 1+ 01/13/18 15:19 Microcytosis Not Reportable 01/13/18 15:19 Macrocytosis Not Reportable 01/13/18 15:19 Spherocytes Not Reportable 01/13/18 15:19 Pappenheimer Bodies Not Reportable 01/13/18 15:19 Sickle Cells Not Reportable 01/13/18 15:19 Target Cells Not Reportable 01/13/18 15:19 Tear Drop Cells Not Reportable 01/13/18 15:19 Ovalocytes Not Reportable 01/13/18 15:19 Helmet Cells Not Reportable 01/13/18 15:19 Love-Deputy Bodies Not Reportable 01/13/18 15:19 [place] Rings Not Reportable 01/13/18 15:19 Nathan Cells Not Reportable 01/13/18 15:19 Bite Cells Not Reportable 01/13/18 15:19 Crenated Cell Not Reportable 01/13/18 15:19 Elliptocytes Not Reportable 01/13/18 15:19 Acanthocytes (Spur) Not Reportable 01/13/18 15:19 Rouleaux Not Reportable 01/13/18 15:19 Hemoglobin C Crystals Not Reportable 01/13/18 15:19 Schistocytes Not Reportable 01/13/18 15:19 Malaria parasites Not Reportable 01/13/18 15:19 Scotty Bodies Not Reportable 01/13/18 15:19 Hem Pathologist Commnt No 01/13/18 15:19 D-Dimer 2909.03 ng/mlDDU (0-234) H 01/13/18 19:35 Sodium 145 mmol/L (137-145) 01/13/18 19:35 Potassium 3.9 mmol/L (3.6-5.0) 01/13/18 19:35 Chloride 102.0 mmol/L (98-107) 01/13/18 19:35 Carbon Dioxide 25 mmol/L (22-30) 01/13/18 19:35 Anion Gap 22 mmol/L 01/13/18 19:35 BUN 30 mg/dL (9-20) H 01/13/18 19:35 Creatinine 1.2 mg/dL (0.8-1.5) 01/13/18 19:35 Estimated GFR > 60 ml/min 01/13/18 19:35 BUN/Creatinine Ratio 25 % 01/13/18 19:35 Glucose 75 mg/dL (75-100) 01/13/18 19:35 POC Glucose 122 (70-105) H 01/13/18 22:48 Lactic Acid 1.80 mmol/L (0.7-2.0) 01/13/18 23:14 Calcium 8.6 mg/dL (8.4-10.2) 01/13/18 19:35 Total Bilirubin 0.70 mg/dL (0.1-1.2) 01/13/18 15:19 AST 57 units/L (5-40) H 01/13/18 15:19 ALT 25 units/L (7-56) 01/13/18 15:19 Alkaline Phosphatase 96 units/L (35-129) 01/13/18 15:19 Troponin T 0.190 ng/mL (0.00-0.029) H* 01/14/18 01:07 Total Protein 6.2 g/dL (6.3-8.2) L 01/13/18 15:19 Albumin 2.7 g/dL (3.9-5) L 01/13/18 15:19 Albumin/Globulin Ratio 0.8 % 01/13/18 15:19 Triglycerides 67 mg/dL (2-149) 01/13/18 17:38 Cholesterol 108 mg/dL (50-199) 01/13/18 17:38 LDL Cholesterol Direct 44 mg/dL (50-130) L 01/13/18 17:38 HDL Cholesterol 55 mg/dL (40-59) 01/13/18 17:38 Cholesterol/HDL Ratio 1.96 % 01/13/18 17:38 TSH 0.695 mlU/mL (0.270-4.200) 01/13/18 19:35 Free T4 1.24 ng/dL (0.76-1.46) 01/13/18 19:35
[2018-01-14] MEDS: LOVENOX SUB-Q SCH ×2 (13:05→22:21)
[2018-01-14] MEDS: ROCEPHIN/NS 2 GM/100 ML 2 GM/100 ML BAG IV SCH (13:06)
[2018-01-14] MEDS: NAMENDA PO SCH (13:06)
[2018-01-14] MEDS: SODIUM CHLORIDE FLUSH SYRINGE 10 ML IV SCH ×2 (13:08→22:22)
[2018-01-14] MEDS: ZITHROMAX 500 MG in NACL 0.9% 250ML 250 ML IV SCH (14:00)
--- NOTE | 2018-01-15 08:26 | Progress Note ---
Assessment and Plan 1. Coronary artery disease stable 2. Ischemic cardiomyopathy with preserved LV ejection fraction of 50% 3. Type 2 diabetes mellitus 4. Peripheral vascular disease 5. Alzheimer's dementia Plan. Continue conservative cardiac management. Not a candidate for invasive management Subjective Date of service: 01/15/18 Interval history: Demented Objective Vital Signs Temp Pulse Resp BP Pulse Ox 01/15/18 05:18 98.4 F 16 94/68 01/15/18 00:33 99.5 F 106 H 16 122/43 89 01/14/18 20:39 99.1 F 101 H 18 148/41 91 01/14/18 16:38 106 H 81 L 01/14/18 15:37 98.6 F 20 157/62 01/14/18 13:03 86 75 L 01/14/18 12:38 98.6 F 18 144/38 01/14/18 10:00 100 - Physical Examination General: Appears Well, No Apparent Distress HEENT: Positive: PERRL Neck: Positive: neck supple. Negative: JVD/HJR Cardiac: Positive: Regular Rate, S1/S2, PMI, Laterally Displaced Lungs: Positive: No Wheeze, Rales, Rhonchi Abdomen: Positive: Unremarkable, Active Bowel Sounds Extremities: Absent: edema
[2018-01-15] MEDS: NAMENDA PO SCH (11:17)
[2018-01-15] MEDS: ZITHROMAX 500 MG in NACL 0.9% 250ML 250 ML IV SCH (11:17)
[2018-01-15] MEDS: ROCEPHIN/NS 2 GM/100 ML 2 GM/100 ML BAG IV SCH (11:17)
[2018-01-15] MEDS: LOVENOX SUB-Q SCH ×2 (11:18→21:48)
[2018-01-15] MEDS: SODIUM CHLORIDE FLUSH SYRINGE 10 ML IV SCH ×2 (11:18→21:42)
--- NOTE | 2018-01-15 11:29 | Progress Note ---
Assessment and Plan Assessment and plan: Sepsis. Follow-up blood cultures. Continue IV antibiotics. Consider ID consultation. Right lower lobe Pneumonia. Etiology likely to be aspiration related. Speech evaluation pending. Continue IV antibiotics as noted above. Follow-up serial chest x-ray. NSTEMI. This likely represents a type II LA from sepsis. Continue to trend cardiac isoenzymes. Cardiology recommends conservative cardiac management and patient is not a candidate for invasive treatment.. Toxic metabolic encephalopathy. Etiology likely secondary to #1. Patient less responsive than baseline per records. Alzheimer's dementia. Patient nonverbal and bedridden At baseline. Gen. debility. PT/OT when more stable. Severe protein calorie malnutrition. Nutritional consult. Patient may need Dobbhoff tube placement and later PEG depending on speech evaluation. Seizure disorder. Continue AEDs. Diabetes mellitus type 2. Continue Accu-Cheks and sliding scale History Interval history: No new issues overnight. is at the bedside. Patient is more alert per the . All questions were answered. Hospitalist Physical - Constitutional Vitals: Temp Pulse Resp BP Pulse Ox 98.1 F 105 H 18 109/79 96 01/15/18 08:07 01/15/18 08:07 01/15/18 10:03 01/15/18 10:03 01/15/18 08:16 General appearance: Present: no acute distress, cachectic - EENT Eyes: Present: PERRL, EOM intact ENT: hearing intact, clear oral mucosa, dentition normal - Neck Neck: Present: supple, normal ROM - Respiratory Respiratory effort: normal Respiratory: bilateral: CTA - Cardiovascular Rhythm: regular Heart Sounds: Present: S1 & S2. Absent: gallop, rub - Extremities Extremities: no ischemia, No edema, Full ROM - Abdominal General gastrointestinal: soft, non-tender, non-distended, normal bowel sounds - Integumentary Integumentary: Present: clear, warm, dry - Neurologic Neurologic: CNII-XII intact, moves all extremities, other (nonverbal and bedridden) Results - Labs CBC & Chem 7: 01/13/18 15:19 01/13/18 19:35 Labs: Laboratory Last Values WBC 7.9 K/mm3 (4.5-11.0) 01/13/18 15:19 RBC 4.23 M/mm3 (3.65-5.03) 01/13/18 15:19 Hgb 12.1 gm/dl (11.8-15.2) 01/13/18 15:19 Hct 36.5 % (35.5-45.6) 01/13/18 15:19 MCV 86 fl (84-94) 01/13/18 15:19 MCH 29 pg (28-32) 01/13/18 15:19 MCHC 33 % (32-34) 01/13/18 15:19 RDW 16.7 % (13.2-15.2) H 01/13/18 15:19 Plt Count 198 K/mm3 (140-440) 01/13/18 15:19 Add Manual Diff Complete 01/13/18 15: Total Counted 100 01/13/18 15:19 Seg Neuts % (Manual) 64.0 % (40.0-70.0) 01/13/18 15:19 Band Neutrophils % 0 % 01/13/18 15:19 Lymphocytes % (Manual) 27.0 % (13.4-35.0) 01/13/18 15:19 Reactive Lymphs % (Man) 0 % 01/13/18 15:19 Monocytes % (Manual) 7.0 % (0.0-7.3) 01/13/18 15:19 Eosinophils % (Manual) 0 % (0.0-4.3) 01/13/18 15:19 Basophils % (Manual) 0 % (0.0-1.8) 01/13/18 15:19 Metamyelocytes % 2.0 % 01/13/18 15:19 Myelocytes % 0 % 01/13/18 15:19 Promyelocytes % 0 % 01/13/18 15:19 Blast Cells % 0 % 01/13/18 15:19 Nucleated RBC % Not Reportable 01/13/18 15:19 Seg Neutrophils # Man 5.1 K/mm3 (1.8-7.7) 01/13/18 15:19 Band Neutrophils # 0.0 K/mm3 01/13/18 15:19 Lymphocytes # (Manual) 2.1 K/mm3 (1.2-5.4) 01/13/18 15:19 Abs React Lymphs (Man) 0.0 K/mm3 01/13/18 15:19 Monocytes # (Manual) 0.6 K/mm3 (0.0-0.8) 01/13/18 15:19 Eosinophils # (Manual) 0.0 K/mm3 (0.0-0.4) 01/13/18 15:19 Basophils # (Manual) 0.0 K/mm3 (0.0-0.1) 01/13/18 15:19 Metamyelocytes # 0.2 K/mm3 01/13/18 15:19 Myelocytes # 0.0 K/mm3 01/13/18 15:19 Promyelocytes # 0.0 K/mm3 01/13/18 15:19 Blast Cells # 0.0 K/mm3 01/13/18 15:19 WBC Morphology Not Reportable 01/13/18 15:19 Hypersegmented Neuts Not Reportable 01/13/18 15:19 Hyposegmented Neuts Not Reportable 01/13/18 15:19 Hypogranular Neuts Not Reportable 01/13/18 15:19 Smudge Cells Not Reportable 01/13/18 15:19 Toxic Granulation Not Reportable 01/13/18 15:19 Toxic Vacuolation Not Reportable 01/13/18 15:19 Dohle Bodies Not Reportable 01/13/18 15:19 Pelger-Huet Anomaly Not Reportable 01/13/18 15:19 Titi Rods Not Reportable 01/13/18 15:19 Platelet Estimate Consistent w auto 01/13/18 15:19 Clumped Platelets Not Reportable 01/13/18 15:19 Plt Clumps, EDTA Not Reportable 01/13/18 15:19 Large Platelets Not Reportable 01/13/18 15:19 Giant Platelets Not Reportable 01/13/18 15:19 Platelet Satelliting Not Reportable 01/13/18 15:19 Plt Morphology Comment Not Reportable 01/13/18 15:19 RBC Morphology Not Reportable 01/13/18 15:19 Dimorphic RBCs Not Reportable 01/13/18 15:19 Polychromasia Not Reportable 01/13/18 15:19 Hypochromasia Not Reportable 01/13/18 15:19 Poikilocytosis Few 01/13/18 15:19 Anisocytosis 1+ 01/13/18 15:19 Microcytosis Not Reportable 01/13/18 15:19 Macrocytosis Not Reportable 01/13/18 15:19 Spherocytes Not Reportable 01/13/18 15:19 Pappenheimer Bodies Not Reportable 01/13/18 15:19 Sickle Cells Not Reportable 01/13/18 15:19 Target Cells Not Reportable 01/13/18 15:19 Tear Drop Cells Not Reportable 01/13/18 15:19 Ovalocytes Not Reportable 01/13/18 15:19 Helmet Cells Not Reportable 01/13/18 15:19 [place] Bodies Not Reportable 01/13/18 15:19 [place] Rings Not Reportable 01/13/18 15:19 [place] Cells Not Reportable 01/13/18 15:19 Bite Cells Not Reportable 01/13/18 15:19 Crenated Cell Not Reportable 01/13/18 15:19 Elliptocytes Not Reportable 01/13/18 15:19 Acanthocytes (Spur) Not Reportable 01/13/18 15:19 Rouleaux Not Reportable 01/13/18 15:19 Hemoglobin C Crystals Not Reportable 01/13/18 15:19 Schistocytes Not Reportable 01/13/18 15:19 Malaria parasites Not Reportable 01/13/18 15:19 Scotty Bodies Not Reportable 01/13/18 15:19 Hem Pathologist Commnt No 01/13/18 15:19 D-Dimer 2909.03 ng/mlDDU (0-234) H 01/13/18 19:35 Sodium 145 mmol/L (137-145) 01/13/18 19:35 Potassium 3.9 mmol/L (3.6-5.0) 01/13/18 19:35 Chloride 102.0 mmol/L (98-107) 01/13/18 19:35 Carbon Dioxide 25 mmol/L (22-30) 01/13/18 19:35 Anion Gap 22 mmol/L 01/13/18 19:35 BUN 30 mg/dL (9-20) H 01/13/18 19:35 Creatinine 1.2 mg/dL (0.8-1.5) 01/13/18 19:35 Estimated GFR > 60 ml/min 01/13/18 19:35 BUN/Creatinine Ratio 25 % 01/13/18 19:35 Glucose 75 mg/dL (75-100) 01/13/18 19:35 POC Glucose 81 (70-105) 01/15/18 09:01 Lactic Acid 1.80 mmol/L (0.7-2.0) 01/13/18 23:14 Calcium 8.6 mg/dL (8.4-10.2) 01/13/18 19:35 Total Bilirubin 0.70 mg/dL (0.1-1.2) 01/13/18 15:19 AST 57 units/L (5-40) H 01/13/18 15:19 ALT 25 units/L (7-56) 01/13/18 15:19 Alkaline Phosphatase 96 units/L (35-129) 01/13/18 15:19 Troponin T 0.190 ng/mL (0.00-0.029) H* 01/14/18 01:07 Total Protein 6.2 g/dL (6.3-8.2) L 01/13/18 15:19 Albumin 2.7 g/dL (3.9-5) L 01/13/18 15:19 Albumin/Globulin Ratio 0.8 % 01/13/18 15:19 Triglycerides 67 mg/dL (2-149) 01/13/18 17:38 Cholesterol 108 mg/dL (50-199) 01/13/18 17:38 LDL Cholesterol Direct 44 mg/dL (50-130) L 01/13/18 17:38 HDL Cholesterol 55 mg/dL (40-59) 01/13/18 17:38 Cholesterol/HDL Ratio 1.96 % 01/13/18 17:38 TSH 0.695 mlU/mL (0.270-4.200) 01/13/18 19:35 Free T4 1.24 ng/dL (0.76-1.46) 01/13/18 19:35
[2018-01-15 12:11] LABS: Basophils % (Auto) 0.2 % (0.0-1.8); Eosinophils # (Auto) 0.1 K/mm3 (0.0-0.4); Eosinophils % (Auto) 1.3 % (0.0-4.3); Hematocrit 32.2 % (35.5-45.6); Hemoglobin 10.9 gm/dl (11.8-15.2); Lymphocytes # (Auto) 1.3 K/mm3 (1.2-5.4); Lymphocytes % (Auto) 18.3 % (13.4-35.0); Mean Corpuscular HGB Conc 34 % (32-34); Mean Corpuscular Hemoglobin 29 pg (28-32); Mean Corpuscular Volume 86 fl (84-94); Monocytes # (Auto) 0.5 K/mm3 (0.0-0.8); Monocytes % (Auto) 6.5 % (0.0-7.3); Platelet Count 186 K/mm3 (140-440); Red Blood Count 3.74 M/mm3 (3.65-5.03); Red Cell Distribution Width 16.7 % (13.2-15.2)
[2018-01-15 12:44] LABS: BUN/Creatinine Ratio 30; Blood Urea Nitrogen 21 mg/dL (9-20); Calcium 8.2 mg/dL (8.4-10.2); Hemolysis Index 15
[2018-01-15] MEDS: D5/0.45NS 1,000 ML IV SCH (14:44)
[2018-01-16] MEDS: D5/0.45NS 1,000 ML IV SCH (04:12)
[2018-01-16 05:53] LABS: Basophils % (Auto) 0.3 % (0.0-1.8); Eosinophils # (Auto) 0.1 K/mm3 (0.0-0.4); Eosinophils % (Auto) 1.9 % (0.0-4.3); Hematocrit 31.4 % (35.5-45.6); Hemoglobin 10.5 gm/dl (11.8-15.2); Lymphocytes # (Auto) 1.2 K/mm3 (1.2-5.4); Mean Corpuscular HGB Conc 34 % (32-34); Mean Corpuscular Hemoglobin 29 pg (28-32); Mean Corpuscular Volume 88 fl (84-94); Monocytes # (Auto) 0.5 K/mm3 (0.0-0.8); Monocytes % (Auto) 7.8 % (0.0-7.3); Platelet Count 202 K/mm3 (140-440); Red Blood Count 3.58 M/mm3 (3.65-5.03); Red Cell Distribution Width 16.3 % (13.2-15.2)
[2018-01-16 06:11] LABS: BUN/Creatinine Ratio 23; Blood Urea Nitrogen 16 mg/dL (9-20); Calcium 7.9 mg/dL (8.4-10.2); Hemolysis Index 14
--- NOTE | 2018-01-16 09:32 | Progress Note ---
Assessment and Plan 1. Coronary artery disease stable 2. Ischemic cardiomyopathy with preserved LV ejection fraction of 50% 3. Type 2 diabetes mellitus 4. Peripheral vascular disease 5. Alzheimer's dementia Plan. Continue conservative cardiac management. Not a candidate for invasive management Subjective Date of service: 01/16/18 Interval history: Demented Objective Vital Signs Temp Pulse Resp BP Pulse Ox 01/16/18 04:43 98.7 F 69 20 135/35 90 01/16/18 00:02 98.6 F 86 20 146/29 93 01/15/18 23:51 76 01/15/18 20:28 98.9 F 79 20 121/59 94 01/15/18 16:39 130/31 01/15/18 13:00 102 H 01/15/18 11:58 96 H 138/111 93 01/15/18 10:03 18 109/79 - Physical Examination General: Appears Well, No Apparent Distress HEENT: Positive: PERRL Neck: Positive: neck supple. Negative: JVD/HJR Cardiac: Positive: Regular Rate, S1/S2, S3, PMI, Laterally Displaced Lungs: Positive: clear to auscultation, No Wheeze, Rales, Rhonchi Neuro: Positive: No Lateralizing Findings, Other (Demented) Abdomen: Positive: Unremarkable, Active Bowel Sounds Extremities: Absent: edema - Labs and Meds CBC 01/15/18 01/16/18 Range/Units 10:55 05:08 WBC 7.2 6.2 (4.5-11.0) K/mm3 RBC 3.74 3.58 L (3.65-5.03) M/mm3 Hgb 10.9 L 10.5 L (11.8-15.2) gm/dl Hct 32.2 L 31.4 L (35.5-45.6) % Plt Count 186 202 (140-440) K/mm3 Lymph # 1.3 1.2 (1.2-5.4) K/mm3 [place] # 0.5 0.5 (0.0-0.8) K/mm3 Eos # 0.1 0.1 (0.0-0.4) K/mm3 Baso # 0.0 0.0 (0.0-0.1) K/mm3 Comprehensive Metabolic Panel 01/15/18 01/16/18 Range/Units 10:55 05:08 Sodium 153 H D 151 H (137-145) mmol/L Potassium 3.1 L D 3.1 L (3.6-5.0) mmol/L Chloride 111.8 H 111.3 H (98-107) mmol/L Carbon Dioxide 25 28 (22-30) mmol/L BUN 21 H 16 (9-20) mg/dL Creatinine 0.7 L 0.7 L (0.8-1.5) mg/dL Glucose 71 L 138 H (75-100) mg/dL Calcium 8.2 L 7.9 L (8.4-10.2) mg/dL
[2018-01-16] MEDS: NAMENDA PO SCH (09:49)
[2018-01-16] MEDS: LOVENOX SUB-Q SCH ×2 (09:51→21:10)
[2018-01-16] MEDS: ROCEPHIN/NS 2 GM/100 ML 2 GM/100 ML BAG IV SCH (10:10)
[2018-01-16] MEDS: ZITHROMAX 500 MG in NACL 0.9% 250ML 250 ML IV SCH (10:15)
[2018-01-16] MEDS: SODIUM CHLORIDE FLUSH SYRINGE 10 ML IV SCH ×2 (10:18→21:14)
--- NOTE | 2018-01-16 11:44 | Progress Note ---
Assessment and Plan Assessment and plan: Sepsis. Follow-up blood cultures. Continue IV antibiotics. Consider ID consultation. Right lower lobe Pneumonia. Etiology likely to be aspiration related. Speech evaluation recommends MBS. Continue IV antibiotics as noted above. Follow-up serial chest x-ray. Evaluation with MBS to rule out slient aspiration on Wednesday. DHT placement today and statrt TF for nutrition NSTEMI. This likely represents a type II LA from sepsis. Cardiology recommends conservative cardiac management and patient is not a candidate for invasive treatment. Toxic metabolic encephalopathy. Etiology likely secondary to #1. Patient less responsive than baseline per records. Alzheimer's dementia. Patient nonverbal and bedridden At baseline. Gen. debility. PT/OT when more stable. Severe protein calorie malnutrition. Nutritional consult. Patient may need Dobbhoff tube placement and later PEG depending on speech evaluation. Seizure disorder. Continue AEDs. Diabetes mellitus type 2. Continue Accu-Cheks and sliding scale History Interval history: No new issues overnight. is at the bedside. Patient is more alert per the . All questions were answered. Hospitalist Physical - Constitutional Vitals: Temp Pulse Resp BP Pulse Ox 98.7 F 69 20 135/35 90 01/16/18 04:43 01/16/18 04:43 01/16/18 04:43 01/16/18 04:43 01/16/18 04:43 General appearance: Present: no acute distress, cachectic - EENT Eyes: Present: PERRL, EOM intact ENT: hearing intact, clear oral mucosa, dentition normal - Neck Neck: Present: supple, normal ROM - Respiratory Respiratory effort: normal Respiratory: bilateral: CTA - Cardiovascular Rhythm: regular Heart Sounds: Present: S1 & S2. Absent: gallop, rub - Extremities Extremities: no ischemia, No edema, Full ROM - Abdominal General gastrointestinal: soft, non-tender, non-distended, normal bowel sounds - Integumentary Integumentary: Present: clear, warm, dry - Neurologic Neurologic: CNII-XII intact, moves all extremities Results - Labs CBC & Chem 7: 01/16/18 05:08 01/16/18 05:08 Labs: Laboratory Last Values WBC 6.2 K/mm3 (4.5-11.0) 01/16/18 05:08 RBC 3.58 M/mm3 (3.65-5.03) L 01/16/18 05:08 Hgb 10.5 gm/dl (11.8-15.2) L 01/16/18 05:08 Hct 31.4 % (35.5-45.6) L 01/16/18 05:08 MCV 88 fl (84-94) 01/16/18 05:08 MCH 29 pg (28-32) 01/16/18 05:08 MCHC 34 % (32-34) 01/16/18 05:08 RDW 16.3 % (13.2-15.2) H 01/16/18 05:08 Plt Count 202 K/mm3 (140-440) 01/16/18 05:08 Lymph % (Auto) 19.0 % (13.4-35.0) 01/16/18 05:08 [place] % (Auto) 7.8 % (0.0-7.3) H 01/16/18 05:08 Eos % (Auto) 1.9 % (0.0-4.3) 01/16/18 05:08 Baso % (Auto) 0.3 % (0.0-1.8) 01/16/18 05:08 Lymph # 1.2 K/mm3 (1.2-5.4) 01/16/18 05:08 [place] # 0.5 K/mm3 (0.0-0.8) 01/16/18 05:08 Eos # 0.1 K/mm3 (0.0-0.4) 01/16/18 05:08 Baso # 0.0 K/mm3 (0.0-0.1) 01/16/18 05:08 Add Manual Diff Complete 01/13/18 15:19 Total Counted 100 01/13/18 15:19 Seg Neutrophils % 71.0 % (40.0-70.0) H 01/16/18 05:08 Seg Neuts % (Manual) 64.0 % (40.0-70.0) 01/13/18 15:19 Band Neutrophils % 0 % 01/13/18 15:19 Lymphocytes % (Manual) 27.0 % (13.4-35.0) 01/13/18 15:19 Reactive Lymphs % (Man) 0 % 01/13/18 15:19 Monocytes % (Manual) 7.0 % (0.0-7.3) 01/13/18 15:19 Eosinophils % (Manual) 0 % (0.0-4.3) 01/13/18 15:19 Basophils % (Manual) 0 % (0.0-1.8) 01/13/18 15:19 Metamyelocytes % 2.0 % 01/13/18 15:19 Myelocytes % 0 % 01/13/18 15:19 Promyelocytes % 0 % 01/13/18 15:19 Blast Cells % 0 % 01/13/18 15:19 Nucleated RBC % Not Reportable 01/13/18 15:19 Seg Neutrophils # 4.4 K/mm3 (1.8-7.7) 01/16/18 05:08 Seg Neutrophils # Man 5.1 K/mm3 (1.8-7.7) 01/13/18 15:19 Band Neutrophils # 0.0 K/mm3 01/13/18 15:19 Lymphocytes # (Manual) 2.1 K/mm3 (1.2-5.4) 01/13/18 15:19 Abs React Lymphs (Man) 0.0 K/mm3 01/13/18 15:19 Monocytes # (Manual) 0.6 K/mm3 (0.0-0.8) 01/13/18 15:19 Eosinophils # (Manual) 0.0 K/mm3 (0.0-0.4) 01/13/18 15:19 Basophils # (Manual) 0.0 K/mm3 (0.0-0.1) 01/13/18 15:19 Metamyelocytes # 0.2 K/mm3 01/13/18 15:19 Myelocytes # 0.0 K/mm3 01/13/18 15:19 Promyelocytes # 0.0 K/mm3 01/13/18 15:19 Blast Cells # 0.0 K/mm3 01/13/18 15:19 WBC Morphology Not Reportable 01/13/18 15:19 Hypersegmented Neuts Not Reportable 01/13/18 15:19 Hyposegmented Neuts Not Reportable 01/13/18 15:19 Hypogranular Neuts Not Reportable 01/13/18 15:19 Smudge Cells Not Reportable 01/13/18 15:19 Toxic Granulation Not Reportable 01/13/18 15:19 Toxic Vacuolation Not Reportable 01/13/18 15:19 Dohle Bodies Not Reportable 01/13/18 15:19 Pelger-Huet Anomaly Not Reportable 01/13/18 15:19 Titi Rods Not Reportable 01/13/18 15:19 Platelet Estimate Consistent w auto 01/13/18 15:19 Clumped Platelets Not Reportable 01/13/18 15:19 Plt Clumps, EDTA Not Reportable 01/13/18 15:19 Large Platelets Not Reportable 01/13/18 15:19 Giant Platelets Not Reportable 01/13/18 15:19 Platelet Satelliting Not Reportable 01/13/18 15:19 Plt Morphology Comment Not Reportable 01/13/18 15:19 RBC Morphology Not Reportable 01/13/18 15:19 Dimorphic RBCs Not Reportable 01/13/18 15:19 Polychromasia Not Reportable 01/13/18 15:19 Hypochromasia Not Reportable 01/13/18 15:19 Poikilocytosis Few 01/13/18 15:19 Anisocytosis 1+ 01/13/18 15:19 Microcytosis Not Reportable 01/13/18 15:19 Macrocytosis Not Reportable 01/13/18 15:19 Spherocytes Not Reportable 01/13/18 15:19 Pappenheimer Bodies Not Reportable 01/13/18 15:19 Sickle Cells Not Reportable 01/13/18 15:19 Target Cells Not Reportable 01/13/18 15:19 Tear Drop Cells Not Reportable 01/13/18 15:19 Ovalocytes Not Reportable 01/13/18 15:19 Helmet Cells Not Reportable 01/13/18 15:19 [place] Bodies Not Reportable 01/13/18 15:19 [place] Rings Not Reportable 01/13/18 15:19 [place] Cells Not Reportable 01/13/18 15:19 Bite Cells Not Reportable 01/13/18 15:19 Crenated Cell Not Reportable 01/13/18 15:19 Elliptocytes Not Reportable 01/13/18 15:19 Acanthocytes (Spur) Not Reportable 01/13/18 15:19 Rouleaux Not Reportable 01/13/18 15:19 Hemoglobin C Crystals Not Reportable 01/13/18 15:19 Schistocytes Not Reportable 01/13/18 15:19 Malaria parasites Not Reportable 01/13/18 15:19 Scotty Bodies Not Reportable 01/13/18 15:19 Hem Pathologist Commnt No 01/13/18 15:19 D-Dimer 2909.03 ng/mlDDU (0-234) H 01/13/18 19:35 Sodium 151 mmol/L (137-145) H 01/16/18 05:08 Potassium 3.1 mmol/L (3.6-5.0) L 01/16/18 05:08 Chloride 111.3 mmol/L (98-107) H 01/16/18 05:08 Carbon Dioxide 28 mmol/L (22-30) 01/16/18 05:08 Anion Gap 15 mmol/L 01/16/18 05:08 BUN 16 mg/dL (9-20) 01/16/18 05:08 Creatinine 0.7 mg/dL (0.8-1.5) L 01/16/18 05:08 Estimated GFR > 60 ml/min 01/16/18 05:08 BUN/Creatinine Ratio 23 % 01/16/18 05:08 Glucose 138 mg/dL (75-100) H 01/16/18 05:08 POC Glucose 81 (70-105) 01/15/18 09:01 Lactic Acid 1.80 mmol/L (0.7-2.0) 01/13/18 23:14 Calcium 7.9 mg/dL (8.4-10.2) L 01/16/18 05:08 Total Bilirubin 0.70 mg/dL (0.1-1.2) 01/13/18 15:19 AST 57 units/L (5-40) H 01/13/18 15:19 ALT 25 units/L (7-56) 01/13/18 15:19 Alkaline Phosphatase 96 units/L (35-129) 01/13/18 15:19 Troponin T 0.190 ng/mL (0.00-0.029) H* 01/14/18 01:07 Total Protein 6.2 g/dL (6.3-8.2) L 01/13/18 15:19 Albumin 2.7 g/dL (3.9-5) L 01/13/18 15:19 Albumin/Globulin Ratio 0.8 % 01/13/18 15:19 Triglycerides 67 mg/dL (2-149) 01/13/18 17:38 Cholesterol 108 mg/dL (50-199) 01/13/18 17:38 LDL Cholesterol Direct 44 mg/dL (50-130) L 01/13/18 17:38 HDL Cholesterol 55 mg/dL (40-59) 01/13/18 17:38 Cholesterol/HDL Ratio 1.96 % 01/13/18 17:38 TSH 0.695 mlU/mL (0.270-4.200) 01/13/18 19:35 Free T4 1.24 ng/dL (0.76-1.46) 01/13/18 19:35
--- NOTE | 2018-01-16 14:03 | XRay Report ---
FINAL REPORT EXAM: XR ABDOMEN 1V AP HISTORY: dobhoff placement TECHNIQUE: KUB(s) view of abdomen. PRIORS: None. FINDINGS: Enteric tube extends below the diaphragm, with tip projected over left upper quadrant and stomach. Nonspecific bowel gas pattern. No apparent pneumoperitoneum. Mild levoconvex curvature and degenerative change in the lumbar spine. IMPRESSION: 1. Enteric tube position as reported. 2. Nonspecific bowel gas pattern, which may represent adynamic ileus. Followup may be warranted.
[2018-01-17] MEDS: D5/0.45NS 1,000 ML IV SCH (05:15)
[2018-01-17 06:06] LABS: Basophils % (Auto) 0.3 % (0.0-1.8); Eosinophils # (Auto) 0.1 K/mm3 (0.0-0.4); Eosinophils % (Auto) 1.4 % (0.0-4.3); Hematocrit 28.8 % (35.5-45.6); Hemoglobin 9.8 gm/dl (11.8-15.2); Lymphocytes # (Auto) 1.2 K/mm3 (1.2-5.4); Lymphocytes % (Auto) 23.5 % (13.4-35.0); Mean Corpuscular HGB Conc 34 % (32-34); Mean Corpuscular Hemoglobin 30 pg (28-32); Mean Corpuscular Volume 86 fl (84-94); Monocytes # (Auto) 0.4 K/mm3 (0.0-0.8); Monocytes % (Auto) 8.8 % (0.0-7.3); Platelet Count 211 K/mm3 (140-440); Red Blood Count 3.34 M/mm3 (3.65-5.03); Red Cell Distribution Width 15.9 % (13.2-15.2)
[2018-01-17 06:45] LABS: BUN/Creatinine Ratio 16; Blood Urea Nitrogen 11 mg/dL (9-20); Calcium 7.6 mg/dL (8.4-10.2); Hemolysis Index 0
[2018-01-17] MEDS: LOVENOX SUB-Q SCH ×2 (09:36→23:52)
[2018-01-17] MEDS: ZITHROMAX 500 MG in NACL 0.9% 250ML 250 ML IV SCH (09:36)
[2018-01-17] MEDS: ROCEPHIN/NS 2 GM/100 ML 2 GM/100 ML BAG IV SCH (09:37)
[2018-01-17] MEDS ORDERED: KCL 10MEQ/100ML 10 MEQ/100 ML BAG IV ONE ×2 (09:50→13:00)
--- NOTE | 2018-01-17 10:44 | Progress Note ---
Assessment and Plan Assessment and plan: Sepsis. Follow-up blood cultures. Continue IV antibiotics. Right lower lobe Pneumonia. Etiology likely to be aspiration related. Speech evaluation recommends MBS. Continue IV antibiotics as noted above. Follow-up serial chest x-ray. Evaluation with MBS to rule out slient aspiration today. upset regarding delay of DHT placement yesterday and then refused completely. I tried to explain that it was a process, ie placement, verification with [facility], Nutrition consult, weekend staffing, etc. She still was not accepting of the explanations and wants another physician. NSTEMI. This likely represents a type II NM from sepsis. Cardiology recommends conservative cardiac management and patient is not a candidate for invasive treatment. Toxic metabolic encephalopathy. Etiology likely secondary to #1. Improved Alzheimer's dementia. Patient nonverbal and bedridden At baseline. Gen. debility. PT/OT when more stable. Severe protein calorie malnutrition. Nutritional consult. ?PEG depending on MBS. Seizure disorder. Continue AEDs. Diabetes mellitus type 2. Continue Accu-Cheks and sliding scale Hypokalemia. IV KCL, pt npo currently. Recheck in am History Interval history: No new issues overnight. is at the bedside. I had a long d/w regarding what she feels is a delay in DHT palcement and actual tube feeding. She reports that she would like a new physician. Hospitalist Physical - Constitutional Vitals: Temp Pulse Resp BP Pulse Ox 99 F 70 20 131/34 94 01/16/18 12:00 01/16/18 21:04 01/16/18 12:00 01/16/18 12:00 01/16/18 08:01 General appearance: Present: no acute distress, cachectic - EENT Eyes: Present: PERRL, EOM intact ENT: hearing intact, clear oral mucosa, dentition normal - Neck Neck: Present: supple, normal ROM - Respiratory Respiratory effort: normal Respiratory: bilateral: CTA - Cardiovascular Rhythm: regular Heart Sounds: Present: S1 & S2. Absent: gallop, rub - Extremities Extremities: no ischemia, No edema, Full ROM - Abdominal General gastrointestinal: soft, non-tender, non-distended, normal bowel sounds - Integumentary Integumentary: Present: clear, warm, dry - Neurologic Neurologic: CNII-XII intact, moves all extremities Results - Labs CBC & Chem 7: 01/17/18 04:53 01/17/18 04:53 Labs: Laboratory Last Values WBC 5.1 K/mm3 (4.5-11.0) 01/17/18 04:53 RBC 3.34 M/mm3 (3.65-5.03) L 01/17/18 04:53 Hgb 9.8 gm/dl (11.8-15.2) L 01/17/18 04:53 Hct 28.8 % (35.5-45.6) L 01/17/18 04:53 MCV 86 fl (84-94) 01/17/18 04:53 MCH 30 pg (28-32) 01/17/18 04:53 MCHC 34 % (32-34) 01/17/18 04:53 RDW 15.9 % (13.2-15.2) H 01/17/18 04:53 Plt Count 211 K/mm3 (140-440) 01/17/18 04:53 Lymph % (Auto) 23.5 % (13.4-35.0) 01/17/18 04:53 [place] % (Auto) 8.8 % (0.0-7.3) H 01/17/18 04:53 Eos % (Auto) 1.4 % (0.0-4.3) 01/17/18 04:53 Baso % (Auto) 0.3 % (0.0-1.8) 01/17/18 04:53 Lymph # 1.2 K/mm3 (1.2-5.4) 01/17/18 04:53 [place] # 0.4 K/mm3 (0.0-0.8) 01/17/18 04:53 Eos # 0.1 K/mm3 (0.0-0.4) 01/17/18 04:53 Baso # 0.0 K/mm3 (0.0-0.1) 01/17/18 04:53 Add Manual Diff Complete 01/13/18 15:19 Total Counted 100 01/13/18 15:19 Seg Neutrophils % 66.0 % (40.0-70.0) 01/17/18 04:53 Seg Neuts % (Manual) 64.0 % (40.0-70.0) 01/13/18 15:19 Band Neutrophils % 0 % 01/13/18 15:19 Lymphocytes % (Manual) 27.0 % (13.4-35.0) 01/13/18 15:19 Reactive Lymphs % (Man) 0 % 01/13/18 15:19 Monocytes % (Manual) 7.0 % (0.0-7.3) 01/13/18 15:19 Eosinophils % (Manual) 0 % (0.0-4.3) 01/13/18 15:19 Basophils % (Manual) 0 % (0.0-1.8) 01/13/18 15:19 Metamyelocytes % 2.0 % 01/13/18 15:19 Myelocytes % 0 % 01/13/18 15:19 Promyelocytes % 0 % 01/13/18 15:19 Blast Cells % 0 % 01/13/18 15:19 Nucleated RBC % Not Reportable 01/13/18 15:19 Seg Neutrophils # 3.4 K/mm3 (1.8-7.7) 01/17/18 04:53 Seg Neutrophils # Man 5.1 K/mm3 (1.8-7.7) 01/13/18 15:19 Band Neutrophils # 0.0 K/mm3 01/13/18 15:19 Lymphocytes # (Manual) 2.1 K/mm3 (1.2-5.4) 01/13/18 15:19 Abs React Lymphs (Man) 0.0 K/mm3 01/13/18 15:19 Monocytes # (Manual) 0.6 K/mm3 (0.0-0.8) 01/13/18 15:19 Eosinophils # (Manual) 0.0 K/mm3 (0.0-0.4) 01/13/18 15:19 Basophils # (Manual) 0.0 K/mm3 (0.0-0.1) 01/13/18 15:19 Metamyelocytes # 0.2 K/mm3 01/13/18 15:19 Myelocytes # 0.0 K/mm3 01/13/18 15:19 Promyelocytes # 0.0 K/mm3 01/13/18 15:19 Blast Cells # 0.0 K/mm3 01/13/18 15:19 WBC Morphology Not Reportable 01/13/18 15:19 Hypersegmented Neuts Not Reportable 01/13/18 15:19 Hyposegmented Neuts Not Reportable 01/13/18 15:19 Hypogranular Neuts Not Reportable 01/13/18 15:19 Smudge Cells Not Reportable 01/13/18 15:19 Toxic Granulation Not Reportable 01/13/18 15:19 Toxic Vacuolation Not Reportable 01/13/18 15:19 Dohle Bodies Not Reportable 01/13/18 15:19 Pelger-Huet Anomaly Not Reportable 01/13/18 15:19 Titi Rods Not Reportable 01/13/18 15:19 Platelet Estimate Consistent w auto 01/13/18 15:19 Clumped Platelets Not Reportable 01/13/18 15:19 Plt Clumps, EDTA Not Reportable 01/13/18 15:19 Large Platelets Not Reportable 01/13/18 15:19 Giant Platelets Not Reportable 01/13/18 15:19 Platelet Satelliting Not Reportable 01/13/18 15:19 Plt Morphology Comment Not Reportable 01/13/18 15:19 RBC Morphology Not Reportable 01/13/18 15:19 Dimorphic RBCs Not Reportable 01/13/18 15:19 Polychromasia Not Reportable 01/13/18 15:19 Hypochromasia Not Reportable 01/13/18 15:19 Poikilocytosis Few 01/13/18 15:19 Anisocytosis 1+ 01/13/18 15:19 Microcytosis Not Reportable 01/13/18 15:19 Macrocytosis Not Reportable 01/13/18 15:19 Spherocytes Not Reportable 01/13/18 15:19 Pappenheimer Bodies Not Reportable 01/13/18 15:19 Sickle Cells Not Reportable 01/13/18 15:19 Target Cells Not Reportable 01/13/18 15:19 Tear Drop Cells Not Reportable 01/13/18 15:19 Ovalocytes Not Reportable 01/13/18 15:19 Helmet Cells Not Reportable 01/13/18 15:19 [place] Bodies Not Reportable 01/13/18 15:19 [place] Rings Not Reportable 01/13/18 15:19 [place] Cells Not Reportable 01/13/18 15:19 Bite Cells Not Reportable 01/13/18 15:19 Crenated Cell Not Reportable 01/13/18 15:19 Elliptocytes Not Reportable 01/13/18 15:19 Acanthocytes (Spur) Not Reportable 01/13/18 15:19 Rouleaux Not Reportable 01/13/18 15:19 Hemoglobin C Crystals Not Reportable 01/13/18 15:19 Schistocytes Not Reportable 01/13/18 15:19 Malaria parasites Not Reportable 01/13/18 15:19 Scotty Bodies Not Reportable 01/13/18 15:19 Hem Pathologist Commnt No 01/13/18 15:19 D-Dimer 2909.03 ng/mlDDU (0-234) H 01/13/18 19:35 Sodium 152 mmol/L (137-145) H 01/17/18 04:53 Potassium 2.8 mmol/L (3.6-5.0) L* 01/17/18 04:53 Chloride 112.2 mmol/L (98-107) H 01/17/18 04:53 Carbon Dioxide 27 mmol/L (22-30) 01/17/18 04:53 Anion Gap 16 mmol/L 01/17/18 04:53 BUN 11 mg/dL (9-20) 01/17/18 04:53 Creatinine 0.7 mg/dL (0.8-1.5) L 01/17/18 04:53 Estimated GFR > 60 ml/min 01/17/18 04:53 BUN/Creatinine Ratio 16 % 01/17/18 04:53 Glucose 135 mg/dL (75-100) H 01/17/18 04:53 POC Glucose 163 (70-105) H 01/16/18 20:26 Lactic Acid 1.80 mmol/L (0.7-2.0) 01/13/18 23:14 Calcium 7.6 mg/dL (8.4-10.2) L 01/17/18 04:53 Total Bilirubin 0.70 mg/dL (0.1-1.2) 01/13/18 15:19 AST 57 units/L (5-40) H 01/13/18 15:19 ALT 25 units/L (7-56) 01/13/18 15:19 Alkaline Phosphatase 96 units/L (35-129) 01/13/18 15:19 Troponin T 0.190 ng/mL (0.00-0.029) H* 01/14/18 01:07 Total Protein 6.2 g/dL (6.3-8.2) L 01/13/18 15:19 Albumin 2.7 g/dL (3.9-5) L 01/13/18 15:19 Albumin/Globulin Ratio 0.8 % 01/13/18 15:19 Triglycerides 67 mg/dL (2-149) 01/13/18 17:38 Cholesterol 108 mg/dL (50-199) 01/13/18 17:38 LDL Cholesterol Direct 44 mg/dL (50-130) L 01/13/18 17:38 HDL Cholesterol 55 mg/dL (40-59) 01/13/18 17:38 Cholesterol/HDL Ratio 1.96 % 01/13/18 17:38 TSH 0.695 mlU/mL (0.270-4.200) 01/13/18 19:35 Free T4 1.24 ng/dL (0.76-1.46) 01/13/18 19:35
--- NOTE | 2018-01-17 10:48 | Progress Note ---
Assessment and Plan Alzheimer Dementia Abnormal troponin Trend is not consistent with ACS Abnormal ECG Hypokinesis of the mid and basal inferolateral and lateral vicente on echo, EF 50- 55% Elevated D-Dimer Negative venous doppler study of the LE Pneumonia Diabetes Lactic acidosis on admission Recommend: Conservative medical therapy with aspirin, statins, beta blockers as tolerated. Subjective Date of service: 01/17/18 Interval history: Patient is nonverbal. Family member at bedside. Stable sinus rhythm on telemetry. Objective Vital Signs Temp Pulse Resp BP 01/16/18 21:04 70 01/16/18 12:00 99 F 84 20 131/34 - Physical Examination General: No Apparent Distress HEENT: Positive: PERRL Cardiac: Positive: Reg Rate and Rhythm - Labs and Meds CBC 01/17/18 Range/Units 04:53 WBC 5.1 (4.5-11.0) K/mm3 RBC 3.34 L (3.65-5.03) M/mm3 Hgb 9.8 L (11.8-15.2) gm/dl Hct 28.8 L (35.5-45.6) % Plt Count 211 (140-440) K/mm3 Lymph # 1.2 (1.2-5.4) K/mm3 [place] # 0.4 (0.0-0.8) K/mm3 Eos # 0.1 (0.0-0.4) K/mm3 Baso # 0.0 (0.0-0.1) K/mm3 Comprehensive Metabolic Panel 01/17/18 Range/Units 04:53 Sodium 152 H (137-145) mmol/L Potassium 2.8 L* (3.6-5.0) mmol/L Chloride 112.2 H (98-107) mmol/L Carbon Dioxide 27 (22-30) mmol/L BUN 11 (9-20) mg/dL Creatinine 0.7 L (0.8-1.5) mg/dL Glucose 135 H (75-100) mg/dL Calcium 7.6 L (8.4-10.2) mg/dL
[2018-01-17] MEDS ORDERED: PANCREAZE DR 10,500 UNIT FEEDTUBE PRN (12:04)
[2018-01-17] MEDS ORDERED: SIMPLE SYRUP FEEDTUBE PRN ×2 (12:04)
[2018-01-17] MEDS ORDERED: SODIUM BICARBONATE FEEDTUBE PRN (12:04)
--- NOTE | 2018-01-17 12:36 | Fluoroscopy Report ---
Modified barium swallow under videofluoroscopy: 1.6 minutes fluoroscopy time. History: Possible aspiration, dysphagia. Findings: Transit of liquid and semisolid and solid through cervical esophagus appears unremarkable. No anatomic obstruction noted. Additional findings will be provided by speech therapist Impression: Findings as detailed above.
[2018-01-17] MEDS: SODIUM CHLORIDE FLUSH SYRINGE 10 ML IV SCH ×2 (13:02→23:55)
[2018-01-17] MEDS: NAMENDA PO SCH (13:02)
--- NOTE | 2018-01-17 15:33 | Vascular Lab Report ---
LOWER EXTREMITY VENOUS DUPLEX: REASON FOR EXAM: elevated D-dimer. COMMENTS ON THE RIGHT: All veins visualized are freely compressible without evidence of internal echogenicity. Flow is spontaneous and phasic throughout. COMMENTS ON THE LEFT: All veins visualized are freely compressible without evidence of internal echogenicity. Flow is spontaneous and phasic throughout. IMPRESSION: No evidence of acute or chronic deep venous thrombosis in either lower extremity.
[2018-01-18 05:55] LABS: Basophils % (Auto) 0.4 % (0.0-1.8); Eosinophils # (Auto) 0.1 K/mm3 (0.0-0.4); Eosinophils % (Auto) 2.1 % (0.0-4.3); Hematocrit 29.2 % (35.5-45.6); Hemoglobin 9.7 gm/dl (11.8-15.2); Lymphocytes # (Auto) 1.3 K/mm3 (1.2-5.4); Lymphocytes % (Auto) 25.5 % (13.4-35.0); Mean Corpuscular HGB Conc 33 % (32-34); Mean Corpuscular Hemoglobin 29 pg (28-32); Mean Corpuscular Volume 87 fl (84-94); Monocytes # (Auto) 0.5 K/mm3 (0.0-0.8); Monocytes % (Auto) 10.1 % (0.0-7.3); Platelet Count 249 K/mm3 (140-440); Red Blood Count 3.35 M/mm3 (3.65-5.03); Red Cell Distribution Width 15.8 % (13.2-15.2)
[2018-01-18 06:19] LABS: BUN/Creatinine Ratio 14; Blood Urea Nitrogen 10 mg/dL (9-20); Calcium 7.4 mg/dL (8.4-10.2); Hemolysis Index 8
[2018-01-18] MEDS ORDERED: POTASSIUM CHLORIDE FEEDTUBE NR (08:10)
[2018-01-18 08:55] VITALS: BP 125/37
--- NOTE | 2018-01-18 10:19 | Progress Note ---
Assessment and Plan Alzheimer Dementia Abnormal troponin Trend is not consistent with ACS Abnormal ECG Hypokinesis of the mid and basal inferolateral and lateral vicente on echo, EF 50- 55% Elevated D-Dimer Negative venous doppler study of the LE Pneumonia Diabetes Lactic acidosis on admission Recommend: Conservative medical therapy with aspirin, statins, beta blockers as tolerated. We will follow intermittently. Subjective Date of service: 01/18/18 Interval history: Patient is nonverbal. Family member at bedside. Stable sinus rhythm on telemetry. Objective Vital Signs Temp Pulse Resp BP BP Pulse Ox 01/18/18 08:09 99.5 F 78 19 125/37 91 01/18/18 06:14 72 139/38 93 01/18/18 05:00 98.7 F 94 01/17/18 22:00 63 16 96 01/17/18 21:14 97.2 F L 64 18 103/30 93 01/17/18 18:11 97.9 F 74 16 120/40 95 01/17/18 12:30 98.3 F 70 18 130/33 96 - Physical Examination General: No Apparent Distress HEENT: Positive: PERRL Cardiac: Positive: Reg Rate and Rhythm - Labs and Meds CBC 01/18/18 Range/Units 04:44 WBC 5.1 (4.5-11.0) K/mm3 RBC 3.35 L (3.65-5.03) M/mm3 Hgb 9.7 L (11.8-15.2) gm/dl Hct 29.2 L (35.5-45.6) % Plt Count 249 (140-440) K/mm3 Lymph # 1.3 (1.2-5.4) K/mm3 [place] # 0.5 (0.0-0.8) K/mm3 Eos # 0.1 (0.0-0.4) K/mm3 Baso # 0.0 (0.0-0.1) K/mm3 Comprehensive Metabolic Panel 01/18/18 Range/Units 04:44 Sodium 148 H (137-145) mmol/L Potassium 2.9 L* (3.6-5.0) mmol/L Chloride 109.8 H (98-107) mmol/L Carbon Dioxide 26 (22-30) mmol/L BUN 10 (9-20) mg/dL Creatinine 0.7 L (0.8-1.5) mg/dL Glucose 129 H (75-100) mg/dL Calcium 7.4 L (8.4-10.2) mg/dL
--- NOTE | 2018-01-18 10:43 | Discharge Summary ---
Providers - Providers Date of Admission: 01/13/18 19:11 Date of discharge: 01/18/18 Attending physician: CAIO BACA MD 01/13/18 Consult to Cardiac Rehabilitation [CONS] Routine Reason For Exam: Phase I 01/13/18 19:14 Speech Therapy Evaluation and Treat [CONS] Routine Reason For Exam: Pneumonia with [place] 01/13/18 19:34 Consult to Cardiology [CONS] Routine Consulting Provider: EMMANUEL LEPE Reason For Exam: nstemi 01/14/18 04:57 Consult to Wound/ET Nurse [CONS] Routine Reason For Exam: wound eval 01/16/18 12:04 Consult to Dietitian/Nutrition [CONS] Routine Physician Instructions: Reason For Exam: Reason for Consult: Write/Manage Tube Feeding Primary care physician: [facility] Hospitalization Reason for admission: Aspiration pneumonia Condition: Stable Pertinent studies: Chest x-ray right lower lobe infiltrates Hospital course: 67 YO Male with DM, Alzheimers Dementia, Severe Malnutrition, Debility, HTN, Seizure Disorder, Unable to conduct activities of daily living presents to ED for evaluation. Pt is confused, nonverbal, and unable to provide history. Pt history provided by family who is at bedside during exam and interview. As per family, the patient has become increasingly confused over the past week. Pt is less interactive, and has experienced decreased oral intake. Pt transported to [facility] for further care and evaluation. Pt seen and evaluated in ED and found to have RLL Pneumonia, as well as elevated cardiac enzymes consistent with NSTEMI. Pt admitted to telemetry. Cardiology consulted in ED. No reports of CP, Palpitations, NVD, Trauma, productive cough, unilateral leg swelling, calf pain , prolonged travel, individual/family history of DVT/PE. Patient was admitted to the floor for the management of sepsis secondary to aspiration pneumonia was treated with IV antibiotics and showed improvement and discharged home. Patient had chest pain and cardiology was consulted and recommended conservative management. The was in the room and instructed about aspiration precaution at home. Patient is hemodynamically stable at the time of discharge. Appropriate medication scripts were given at the time of discharge. Disposition: DC-01 TO HOME OR SELFCARE Time spent for discharge: 34 minutes - Discharge Diagnoses (1) Acidosis Status: Acute (2) Encephalopathy Status: Acute (3) NSTEMI (non-ST elevated myocardial infarction) Status: Ruled-out (4) Pneumonia Status: Acute Qualifiers: Pneumonia type: aspiration pneumonia Laterality: right Lung location: lower lobe of lung (5) Severe malnutrition Status: Acute Core Measure Documentation - Palliative Care Palliative Care/ Comfort Measures: Not Applicable - Core Measures Any of the following diagnoses?: none Exam - Physical Exam Narrative exam: Not in cardiopulmonary distress. The patient appeared well nourished and normally developed. Vital signs as documented. Head exam is unremarkable. No scleral icterus . Neck is without jugular venous distension, thyromegaly, or carotid bruits. Lungs are clear to auscultation. Cardiac exam reveals regular rate and Rhythm. First and second heart sounds normal. No murmurs, rubs or gallops. Abdominal exam reveals normal bowel sounds, no masses, no organomegaly and no aortic enlargement. Extremities are nonedematous and both femoral and pedal pulses are normal. 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 - Constitutional Vitals: Temp Pulse Resp BP Pulse Ox 99.5 F 78 19 125/37 91 01/18/18 08:09 01/18/18 08:09 01/18/18 08:09 01/18/18 08:09 01/18/18 08:09 Plan Activity: advance as tolerated Weight Bearing Status: Weight Bear as Tolerated Diet: diabetic, per dietitian instruction Follow up with: PRIMARY CARE, [Primary Care Provider] - 3-5 Days Prescriptions: Clindamycin [Clindamycin CAP] 300 mg PO Q8H #6 capsule Potassium Chloride 20 meq PO QDAY #5 packet
[2018-01-18] MEDS: NAMENDA PO SCH (10:49)
[2018-01-18] MEDS: ZITHROMAX 500 MG in NACL 0.9% 250ML 250 ML IV SCH (10:49)
[2018-01-18] MEDS: LOVENOX SUB-Q SCH (10:49)
[2018-01-18] MEDS: ROCEPHIN/NS 2 GM/100 ML 2 GM/100 ML BAG IV SCH (10:50)
[2018-01-18] MEDS: SODIUM CHLORIDE FLUSH SYRINGE 10 ML IV SCH (10:50)
[2018-01-18] MEDS ORDERED: POTASSIUM CHLORIDE FEEDTUBE ONE (12:00)
[2018-01-18 14:19] LABS: BUN/Creatinine Ratio 16; Blood Urea Nitrogen 11 mg/dL (9-20); Calcium 7.7 mg/dL (8.4-10.2); Hemolysis Index 83
[2018-01-18] MEDS ORDERED: HumuLIN R SUB-Q SCH (16:30)
== END 2018-01-18 16:19 | disposition home or self-care (01) | DRG 871 ==
LOC: ED 15:07 → 4A 19:11
PROVIDERS: ADMIT Internal Medicine; ATTEND Internal Medicine
DX: A41.9 Sepsis, unspecified organism (principal); J69.0 Pneumonitis due to inhalation of food and vomit; G92 Toxic encephalopathy; E43 Unspecified severe protein-calorie malnutrition; Z68.1 Body mass index [BMI] 19.9 or less, adult; G30.9 Alzheimer's disease, unspecified; F02.80 Dementia in other diseases classified elsewhere, unspecified severity, without behavioral disturbance, psychotic disturbance, mood disturbance, and anxiety; I10 Essential (primary) hypertension; G40.909 Epilepsy, unspecified, not intractable, without status epilepticus; R94.31 Abnormal electrocardiogram [ECG] [EKG]; E87.6 Hypokalemia; I25.10 Atherosclerotic heart disease of native coronary artery without angina pectoris; I25.5 Ischemic cardiomyopathy; E11.51 Type 2 diabetes mellitus with diabetic peripheral angiopathy without gangrene; Z83.3 Family history of diabetes mellitus; Z82.49 Family history of ischemic heart disease and other diseases of the circulatory system; Z79.4 Long term (current) use of insulin; Z79.899 Other long term (current) drug therapy
CPT/HCPCS: 36415; 71045; 74018; 74230; 80048; 80053; 80061; 82140; 82962; 84439; 84443; 84484; 85007; 85025; 85379; 87040; 87076; 87116; 87186; 93005; 93010; 93306; 93970; G8996-GN; G8997-GN; J0456; J0696; J1650; J1815; J1956; J3480; J7030; J7050